=== PATIENT | male | born 1965 | race Caucasian/White ===

== ENCOUNTER → 2019-11-15 12:42 | Outpatient (BNVA) | payer MEDICARE, MEDICAID, SELFPAY | PROVIDERS: PCP Nurse Practitioner Family; Visit Provider Nurse Practitioner Family | DX: R07.89 Other chest pain (principal); E11.9 Type 2 diabetes mellitus without complications; R07.9 Chest pain, unspecified; I10 Essential (primary) hypertension; E78.2 Mixed hyperlipidemia; E11.65 Type 2 diabetes mellitus with hyperglycemia; K21.9 Gastro-esophageal reflux disease without esophagitis | CPT/HCPCS: 80053; 80061; 83036; 83735; 84443; 85025 ==

== ENCOUNTER → 2020-06-10 08:38 | Outpatient (BNVA) | payer MEDICARE, SELFPAY | PROVIDERS: PCP Nurse Practitioner Family; Visit Provider Nurse Practitioner Family | DX: M50.31 Other cervical disc degeneration, high cervical region (principal) | CPT/HCPCS: 72040 ==

== ENCOUNTER → 2020-06-20 09:25 | Outpatient (BNVA) | payer MEDICARE, SELFPAY | PROVIDERS: PCP Nurse Practitioner Family; Visit Provider Nurse Practitioner Family | DX: E11.65 Type 2 diabetes mellitus with hyperglycemia (principal); Z12.5 Encounter for screening for malignant neoplasm of prostate | CPT/HCPCS: 80053; 80061; 82043; 83036; 85025; G0103 ==

== ENCOUNTER → 2020-12-25 09:53 | Outpatient (BNVA) | payer MEDICARE, SELFPAY | PROVIDERS: PCP Nurse Practitioner Family; Visit Provider Nurse Practitioner Family | DX: E11.65 Type 2 diabetes mellitus with hyperglycemia (principal); I10 Essential (primary) hypertension; E78.2 Mixed hyperlipidemia; K21.9 Gastro-esophageal reflux disease without esophagitis; E11.9 Type 2 diabetes mellitus without complications | CPT/HCPCS: 80053; 80061; 83036; 84443; 85025 ==

== ENCOUNTER → 2021-03-09 11:12 | Outpatient (BNVA) | payer MEDICARE, SELFPAY | PROVIDERS: PCP Nurse Practitioner Family; Visit Provider Nurse Practitioner Family | DX: M54.9 Dorsalgia, unspecified (principal); E11.65 Type 2 diabetes mellitus with hyperglycemia; R10.9 Unspecified abdominal pain; R10.30 Lower abdominal pain, unspecified; E78.2 Mixed hyperlipidemia; I10 Essential (primary) hypertension; R35.0 Frequency of micturition | CPT/HCPCS: 80053; 80061; 81003; 83036; 84153; 85025 ==

== ENCOUNTER 2021-03-10 09:33 | Outpatient (CLI) | payer MEDICARE, SELFPAY ==
[2021-03-10] MEDS: iohexol 300 mg/mL 50 mL Btl PO (09:45)
--- NOTE | 2021-03-10 11:30 | CT_ITS ---
WS: [id number] CT ABDOMEN PELVIS TECHNIQUE: Contrast-enhanced CT of the abdomen and pelvis with coronal and sagittal reformatted image s. CLINICAL INFORMATION: R10.9 - Unspecified abdominal pain COMPARISON: None. DLP: 1110.[address] scans at [facility] use at least one of these dose optimization techniques: automat ed exposure control; mA and/or kV adjustment per patient size (includes targeted exams where dose is matched to clinical indication); or iterative reconstruction. FINDINGS:Sigmoid diverticulosis. Diffuse inflammatory stranding and edema with sigmoid colon thickeni ng consistent with acute diverticulitis. No evidence of drainable abscess or fluid collection. Recomm end follow-up to resolution. Diffuse fatty infiltration of the liver. Normal portal vein and splenic vein. Normal gallbladder. Nor mal spleen. Small esophageal hiatal hernia. Lung bases are well aerated. Calcified granuloma left low er lobe. Fatty atrophy of the pancreas. Adrenal glands are normal. Normal renal parenchymal enhanceme nt. No hydronephrosis. Small bilateral renal cysts. Normal caliber abdominal aorta. Mild aortic calci fication. No abdominal or pelvic lymphadenopathy. No inguinal lymphadenopathy. Prominent prostate measuring 5.3 cm. No evidence of small or large bowel obstruction. Normal lumbar spine. No evidence of prior sigmoid an astomosis. CT/CT abdomen pelvis w con* [id number] IMPRESSION: 1. Diffuse thickening with inflammatory stranding and edema involving the sigm oid colon consistent with acute diverticulitis. Recommend follow-up to resoluti on. 2. No evidence of drainable abscess or fluid collection. 3. Diffuse fatty infiltration of the liver. 4. Small bilateral renal cysts.. 5. Small esophageal hiatal hernia. 6. Prominent prostate measuring 5.3 cm. Recommend correlation PSA.
[2021-03-10] MEDS: iohexol 300 mg/mL 100 mL Btl PO (11:32)
== END 2021-03-10 09:34 | disposition home or self-care (01) ==
PROVIDERS: PCP Nurse Practitioner Family; Visit Provider Nurse Practitioner Family
DX: R10.9 Unspecified abdominal pain (principal); N40.0 Benign prostatic hyperplasia without lower urinary tract symptoms; K44.9 Diaphragmatic hernia without obstruction or gangrene; Q61.02 Congenital multiple renal cysts; K76.0 Fatty (change of) liver, not elsewhere classified
CPT/HCPCS: 74177; Q9967

== ENCOUNTER 2021-03-17 09:09 | Inpatient (IN) | payer MEDICARE, SELFPAY ==
[2021-03-17] VITALS (11 sets, daily range): BP systolic 107–128; BP diastolic 66–81; PULSE 53–64; RESP 16–18; TEMP 36.6–37.1; O2SAT 96–99; BMI 28.5
--- NOTE | 2021-03-17 09:23 | W.ED.ABDPA2 ---
Documented by User: GHANSHYAM Shaw 03/19/21 20:47 HPI - Abdominal Pain General: Chief Complaint: Abdominal Pain Stated Complaint: severe lower ABD cramping Time Seen by Provider: 03/17/21 09:18 History of Present Illness: HPI narrative: Patient is a 55-year-old male comes to the ED with abdominal pain. Patient says last week he was diagnosed with diverticulitis and put on Flagyl and Cipro. He has been taking the medications and also made some dietary changes and he still having a lot of abdominal pain. He reports still having diarrhea as well. He says his abdominal pain is located in the lower abdomen especially in the left lower quadrant. He rates the pain a 9 out of 10. Denies any fever, chills, nausea/vomiting, bladder symptoms. Associated Symptoms: Reports diarrhea; Denies chills, constipation, dysuria, fever(s), hematochezia, hematuria, nausea and vomiting Review of Systems Const: Denies: fever(s), chills or fatigue Eyes: Denies: change in vision or eye discomfort ENMT: Denies: throat pain, odynophagia, nasal discharge or nasal congestion Card: Denies: chest pain, palpitations, edema, swelling of feet/ankles, dyspnea on exertion or orthopnea Resp: Denies: dyspnea, productive cough or non-productive cough GI: Reports: abdominal pain and diarrhea; Denies: nausea, vomiting, constipation or hematochezia : Denies: flank pain, difficulty urinating, dysuria or hematuria Musc: Denies: neck pain, back pain or extremity swelling Skin/Breast: Denies: rash or new lesions Neuro: Denies: headache(s), numbness in extremities or weakness in extremities PFSH ED PFSH: Medical History Anxiety Decreased hearing of left ear Elevated hemoglobin Essential hypertension Kidney stone Knee pain, bilateral Left otitis externa Left otitis media with effusion Mild acid reflux Mixed hyperlipidemia Neck pain Neck pain on right side Otitis externa Right shoulder strain RLS (restless legs syndrome) Subcutaneous nodule of neck Thyroid nodule Type 2 diabetes mellitus Surgical History History of left knee surgery History of rotator cuff surgery Family History Other Cancer Diabetes Denies family history of Clotting disorder Social History Smoking and tobacco status: current every day smoker cigarettes Packs smoked per day: 0.5 Years cigarettes smoked: 40 Alcohol intake: current Alcohol intake frequency: few times a week Lives independently: Yes Household members: spouse Housing: House Marital status: Current occupational status: employed History of recent travel: No Current gender identity: Male Physical Exam Const: COMMON NORMALS: patient oriented x3 and alert GENERAL APPEARANCE: cooperative; not comfortable (pt appears uncomfortable due to abdominal pain) HENMT: COMMON NORMALS: normocephalic HEAD & SCALP: normocephalic MOUTH: Normal oral and palatal mucosa present THROAT: posterior oropharynx normal and uvula midline Eye: COMMON NORMALS: Equal, round and reactive pupils present PUPIL: Yes Equal, round and reactive pupils present Neck/C-Spine: COMMON NORMALS: supple GENERAL: Yes normal visual inspection Resp: COMMON NORMALS: normal respiratory effort, No retractions, No use of accessory muscles and clear to auscultation bilaterally AUSCULTATION: clear to auscultation bilaterally Cardio: COMMON NORMALS: regular rate, regular rhythm, S1 normal heart sound present, S2 normal heart sound present, No gallops present (Cardio), No clicks present (Cardio), No murmurs present (Cardio) and Peripheral pulses 2+ throughout RATE: regular rate RHYTHM: regular rhythm HEART SOUNDS: S1 normal heart sound present and S2 normal heart sound present PERIPHERAL PULSES: Peripheral pulses 2+ throughout GI: COMMON NORMALS: Soft to palpation and no masses AUSCULTATION: Yes Hyperactive bowel sounds present PALPATION: Yes Soft to palpation and Yes Tenderness to palpation present (GI) Details: LLQ (moderate tenderness to light palpation) : COMMON NORMALS: Yes no CVA tenderness BLADDER/KIDNEY EXAM: Yes no CVA tenderness Back/Pelvis: COMMON NORMALS: no CVA tenderness Extremity: COMMON NORMALS: normal to inspection Neuro: COMMON NORMALS: patient oriented x3 SENSORIUM/ORIENTATION: Yes alert GAIT: Yes Normal gait present Skin: GENERAL SKIN EXAM: dry skin Course ED course: I went and spoke with Dr. Bernardo after he got the lab results and CT findings. I Told Dr. Bernardo that patient failed outpatient treatment for diverticulitis and his CT findings are worse than they were a week ago and white blood cell count also increased. Dr. Bernardo then said patient will need to be admitted and I started him on IV Zosyn here in the ED. Dr. Mathew will be taking over care of patient talking with hospitalist and getting him admitted. Vital Signs: Vital signs: Vital Signs Temperature 98.0 F 03/19/21 12:39 Pulse Rate 56 L 03/19/21 12:39 Respiratory Rate 17 03/19/21 12:39 Blood Pressure 118/72 03/19/21 12:39 Pulse Oximetry 978 H 03/19/21 12:39 MDM - Abdominal Pain Lab Data: Attestation: I reviewed the patient's lab results. Labs: Lab Results 03/17/21 03/17/21 03/17/21 Range/Units 09:41 09:41 09:41 WBC 12.0 H (4.0-10.0) 10^3/ uL RBC 5.21 (4.1-5.3) 10^6/u L Hgb 16.7 H (11.7-16.6) g/dL Hct 48.4 (42.0-52.0) % MCV 92.9 (80-94) fL MCH 32.1 (28.0-34.0) pg MCHC 34.5 (30.0-36.0) g/dL RDW 12.0 L (12.1-15.1) % Plt Count 294 (130-400) 10^3/c mm MPV 9.8 (7.4-10.4) fL Neut % (Auto) 69.6 % Lymph % (Auto) 17.6 % [place] % (Auto) 7.3 % Eos % (Auto) 4.5 % Baso % (Auto) 0.8 % Neut # (Auto) 8.36 H (1.8-7.7) 10^3/u L Lymph # (Auto) 2.1 (0.8-4.8) 10^3/u L [place] # (Auto) 0.9 (0.2-0.9) 10^3/u L Eos # (Auto) 0.5 (0.0-0.8) 10^3/u L Baso # (Auto) 0.1 (0.0-0.1) 10^3/u L Nucleated RBC % (a uto) 0 % Nucleated RBCs # 0.0 /100WBC ESR (0-10) mm/hr Sodium 137 (136-145) mmol/L Potassium 4.1 (3.5-5.1) mmol/L Chloride 100 (98-107) mmol/L Carbon Dioxide 26 (22-29) mmol/L Anion Gap 15.1 (5-19) BUN 10 (6-20) mg/dL Creatinine 0.5 L (0.7-1.2) mg/dL GFR Calculation 171.4 H (90-130) mL/min Glucose 313 H (65-115) mg/dL Calculated Osmolal ity 295 (285-295) mOsm/k g Calcium 8.9 (8.5-10.5) mg/dL Iron 44 L (59-158) ug/dL TIBC 240 mcg/dl % Saturation 18.3 L (20-50) % Unsat Iron Binding 196 (112-347) ug/dL Total Bilirubin 1.0 (0.15-1.2) mg/dL AST 29 (0-40) U/L ALT 48 H (0-41) U/L Alkaline Phosphata se 101 (40-130) IU/L NT-Pro-B Natriuret Pep (0-125) pg/mL Total Protein 7.1 (6.6-8.7) g/dL Albumin 4.1 (3.5-5.2) g/dL Globulin 3.0 (1.3-4.6) g/dL Lipase 19 (13-60) U/L Carcinoembryonic A g (0.0-4.7) ng/mL Procalcitonin 0.03 (0-0.5) ng/mL TSH (0.27-4.20) uIU/ mL Urine Color (Yellow) Urine Appearance (CLEAR) Urine pH (5-7) Ur Specific Gravit y (1.005-1.030) Urine Protein (Negative) Urine Glucose (UA) (Normal) Urine Ketones (Negative) Urine Blood (Negative) Urine Nitrate (Negative) Urine Bilirubin (Negative) Urine Urobilinogen (Negative) mg/dL Ur Leukocyte Stephanie ase (Negative) Urine RBC (0-2) /hpf Urine WBC (0-5) /hpf Ur Squamous Epith Cells (0-5) /hpf Amorphous Sediment Urine Bacteria (NONE) /hpf 03/17/21 03/17/21 03/17/21 Range/Units 09:41 09:41 09:41 WBC (4.0-10.0) 10^3/ uL RBC (4.1-5.3) 10^6/u L Hgb (11.7-16.6) g/dL Hct (42.0-52.0) % MCV (80-94) fL MCH (28.0-34.0) pg MCHC (30.0-36.0) g/dL RDW (12.1-15.1) % Plt Count (130-400) 10^3/c mm MPV (7.4-10.4) fL Neut % (Auto) % Lymph % (Auto) % [place] % (Auto) % Eos % (Auto) % Baso % (Auto) % Neut # (Auto) (1.8-7.7) 10^3/u L Lymph # (Auto) (0.8-4.8) 10^3/u L [place] # (Auto) (0.2-0.9) 10^3/u L Eos # (Auto) (0.0-0.8) 10^3/u L Baso # (Auto) (0.0-0.1) 10^3/u L Nucleated RBC % (a uto) % Nucleated RBCs # /100WBC ESR 24 H (0-10) mm/hr Sodium (136-145) mmol/L Potassium (3.5-5.1) mmol/L Chloride (98-107) mmol/L Carbon Dioxide (22-29) mmol/L Anion Gap (5-19) BUN (6-20) mg/dL Creatinine (0.7-1.2) mg/dL GFR Calculation (90-130) mL/min Glucose (65-115) mg/dL Calculated Osmolal ity (285-295) mOsm/k g Calcium (8.5-10.5) mg/dL Iron (59-158) ug/dL TIBC mcg/dl % Saturation (20-50) % Unsat Iron Binding (112-347) ug/dL Total Bilirubin (0.15-1.2) mg/dL AST (0-40) U/L ALT (0-41) U/L Alkaline Phosphata se (40-130) IU/L NT-Pro-B Natriuret Pep (0-125) pg/mL Total Protein (6.6-8.7) g/dL Albumin (3.5-5.2) g/dL Globulin (1.3-4.6) g/dL Lipase (13-60) U/L Carcinoembryonic A g 3.0 (0.0-4.7) ng/mL Procalcitonin (0-0.5) ng/mL TSH 1.29 (0.27-4.20) uIU/ mL Urine Color (Yellow) Urine Appearance (CLEAR) Urine pH (5-7) Ur Specific Gravit y (1.005-1.030) Urine Protein (Negative) Urine Glucose (UA) (Normal) Urine Ketones (Negative) Urine Blood (Negative) Urine Nitrate (Negative) Urine Bilirubin (Negative) Urine Urobilinogen (Negative) mg/dL Ur Leukocyte Stephanie ase (Negative) Urine RBC (0-2) /hpf Urine WBC (0-5) /hpf Ur Squamous Epith Cells (0-5) /hpf Amorphous Sediment Urine Bacteria (NONE) /hpf 03/17/21 03/17/21 Range/Units 09:41 09:56 WBC (4.0-10.0) 10^3/ uL RBC (4.1-5.3) 10^6/u L Hgb (11.7-16.6) g/dL Hct (42.0-52.0) % MCV (80-94) fL MCH (28.0-34.0) pg MCHC (30.0-36.0) g/dL RDW (12.1-15.1) % Plt Count (130-400) 10^3/c mm MPV (7.4-10.4) fL Neut % (Auto) % Lymph % (Auto) % [place] % (Auto) % Eos % (Auto) % Baso % (Auto) % Neut # (Auto) (1.8-7.7) 10^3/u L Lymph # (Auto) (0.8-4.8) 10^3/u L [place] # (Auto) (0.2-0.9) 10^3/u L Eos # (Auto) (0.0-0.8) 10^3/u L Baso # (Auto) (0.0-0.1) 10^3/u L Nucleated RBC % (a uto) % Nucleated RBCs # /100WBC ESR (0-10) mm/hr Sodium (136-145) mmol/L Potassium (3.5-5.1) mmol/L Chloride (98-107) mmol/L Carbon Dioxide (22-29) mmol/L Anion Gap (5-19) BUN (6-20) mg/dL Creatinine (0.7-1.2) mg/dL GFR Calculation (90-130) mL/min Glucose (65-115) mg/dL Calculated Osmolal ity (285-295) mOsm/k g Calcium (8.5-10.5) mg/dL Iron (59-158) ug/dL TIBC mcg/dl % Saturation (20-50) % Unsat Iron Binding (112-347) ug/dL Total Bilirubin (0.15-1.2) mg/dL AST (0-40) U/L ALT (0-41) U/L Alkaline Phosphata se (40-130) IU/L NT-Pro-B Natriuret Pep 44 (0-125) pg/mL Total Protein (6.6-8.7) g/dL Albumin (3.5-5.2) g/dL Globulin (1.3-4.6) g/dL Lipase (13-60) U/L Carcinoembryonic A g (0.0-4.7) ng/mL Procalcitonin (0-0.5) ng/mL TSH (0.27-4.20) uIU/ mL Urine Color Yellow (Yellow) Urine Appearance Clear (CLEAR) Urine pH 5 (5-7) Ur Specific Gravit y 1.020 (1.005-1.030) Urine Protein Neg (Negative) Urine Glucose (UA) 4+ H (Normal) Urine Ketones Negative (Negative) Urine Blood Neg (Negative) Urine Nitrate Negative (Negative) Urine Bilirubin Neg (Negative) Urine Urobilinogen Norm (Negative) mg/dL Ur Leukocyte Stephanie ase Negative (Negative) Urine RBC None (0-2) /hpf Urine WBC None (0-5) /hpf Ur Squamous Epith Cells None (0-5) /hpf Amorphous Sediment Not Reportable Urine Bacteria None (NONE) /hpf Imaging Data ^: CT Abd/Pel: Attestation: I personally reviewed and interpreted this imaging study as follows: Radiologist's impression: [address] [address] [address] Scan Report Signed Patient: Karan Castro Unit #: [id number] : [id number] Age/Sex: 55 / M ADM Date: 03/17/21 Loc: ER Room/Bed: Attending Dr: Ordering Provider/Ordering MD: Kev Mcclellan Date of Service: 03/17/21 Procedure(s): CT abdomen pelvis w con* [id number] Accession Number(s): [id number] Report Number: [id number] WS: [id number] CT ABDOMEN PELVIS TECHNIQUE: Contrast-enhanced CT of the abdomen and pelvis with coronal and sagittal reformatted images. CLINICAL INFORMATION: abdominal pain and diarrhea COMPARISON: March 10, 2021 DLP: 1584.[address] scans at [facility] use at least one of these dose optimization techniques: automated exposure control; mA and/or kV adjustment per patient size (includes targeted exams where dose is matched to clinical indication); or iterative reconstruction. FINDINGS: Diffuse thickening involving the sigmoid colon with surrounding inflammatory changes and induration most consistent with acute diverticulitis. This is slightly progressed compared to the prior examination. No evidence of drainable abscess or fluid collection. Recommend follow-up to resolution to exclude underlying neoplasm. Linear increased attenuation in the sigmoid colon presumably due to prior anastomosis. Diffuse fatty infiltration of the liver. Normal gallbladder. Normal spleen. Normal GE junction. Fatty atrophy of the pancreas. Adrenal glands are normal. Normal renal parenchymal enhancement. No hydronephrosis. Enlarged calcified prostate. No other significant changes from previous. CT/CT abdomen pelvis w con* [id number] IMPRESSION: 1. Diffuse wall thickening involving the sigmoid colon with surrounding induration and inflammatory changes consistent with acute diverticulitis. Associated luminal narrowing. This appears slightly progressed compared to the previous examination. 2. Recommend follow-up to resolution to exclude underlying neoplasm. 3. Suspected sigmoid colon anastomosis with suture line. If no history of colon surgery, consider impacted needlelike foreign body in this area contributing to diverticulitis. 4. No other significant changes from previous. 5. No drainable abscess or fluid collection. Notified GHANSHYAM Shaw at 03/17/2021 10:26 AM. Dictated By: Charli Stafford MD Signed By: Charli Stafford MD Signed Date/Time: 03/17/21 1031 DD/ 1010 Discharge Plan Discharge Admit Provider: Iggy Glass Condition: Stable Discharge Orders: Discharge Order (Routine); Ordered 03/19/21 Ordered By: Iggy Glass Discharge Diet: Diabetic and GI Soft Discharge Activity: Resume usual activity Sign Out Sign Out Data: Patient Sign Out occurred on 03/17/21 at 11:40. Patient's care was discussed, and care was transferred from to Reid Bernardo DO. Coding Level of Care Code ED Scrum Master for Chg Fwd Exam Comprehensive Documented by User: Reid Bernardo DO 03/19/21 06:19 HPI - Abdominal Pain General: Chief Complaint: Abdominal Pain Stated Complaint: severe lower ABD cramping Time Seen by Provider: 03/17/21 09:18 History of Present Illness: HPI narrative: 55-year-old male initially seen by the PA. Is recently diagnosed with diverticulitis was on Cipro and Flagyl p.o. and has not had any improvement still having significant pain slightly worsened with diarrhea has not had any bloody stools. MD elicited complaint: abdominal pain Pertinent past history: diverticulitis Onset (ago): day(s) Location: LLQ Severity: moderate Quality: cramping Radiation: none Migration to: no migration Exacerbating factors: eating and movement Relieving factors: rest Associated Symptoms: Reports anorexia, belching, change in bowel habits, change in stool character, GI cramping, diarrhea, nausea and poor appetite; Denies bloating, chills, coffee ground emesis, constipation, dyspepsia, dysuria, excessive flatus, fever(s), heartburn, hematochezia, hematuria, hematemesis, fecal incontinence, loose stools, melena, syncope and vomiting Review of Systems Const: Denies: fever(s) or chills ENMT: Denies: throat pain, ear or mastoid pain, nasal discharge or nasal congestion Card: Denies: syncope Resp: Denies: dyspnea, productive cough or non-productive cough GI: Reports: nausea, diarrhea, GI cramping, belching, change in bowel habits and change in stool character; Denies: vomiting, hematemesis, coffee ground emesis, heartburn, constipation, bloating, excessive flatus, fecal incontinence, hematochezia or melena : Denies: dysuria or hematuria Skin/Breast: Denies: rash or pruritus PFSH ED PFSH: Medical History Anxiety Decreased hearing of left ear Elevated hemoglobin Essential hypertension Kidney stone Knee pain, bilateral Left otitis externa Left otitis media with effusion Mild acid reflux Mixed hyperlipidemia Neck pain Neck pain on right side Otitis externa Right shoulder strain RLS (restless legs syndrome) Subcutaneous nodule of neck Thyroid nodule Type 2 diabetes mellitus Surgical History History of left knee surgery History of rotator cuff surgery Family History Other Cancer Diabetes Denies family history of Clotting disorder Social History Smoking and tobacco status: current every day smoker cigarettes Packs smoked per day: 0.5 Years cigarettes smoked: 40 Alcohol intake: current Alcohol intake frequency: few times a week Lives independently: Yes Household members: spouse Housing: House Marital status: Current occupational status: employed History of recent travel: No Current gender identity: Male Physical Exam Const: COMMON NORMALS: no acute distress GENERAL APPEARANCE: cooperative and comfortable ORIENTATION/CONSCIOUSNESS: Yes awake, Yes oriented to person, Yes oriented to place and Yes oriented to time HENMT: COMMON NORMALS: normocephalic, atraumatic, hearing grossly normal bilaterally and external ears normal HEAD & SCALP: normocephalic and atraumatic EXTERNAL EAR: Yes external ears normal Neck/C-Spine: COMMON NORMALS: no JVD Resp: COMMON NORMALS: normal respiratory effort, No retractions, No use of accessory muscles and clear to auscultation bilaterally AUSCULTATION: clear to auscultation bilaterally Cardio: COMMON NORMALS: no JVD, regular rate, regular rhythm and No murmurs present (Cardio) RATE: regular rate RHYTHM: regular rhythm GI: COMMON NORMALS: No hepatosplenomegaly present AUSCULTATION: Yes Hypoactive bowel sounds present PALPATION: Yes Tenderness to palpation present (GI) Details: LLQ, No Guarding due to palpation present (GI) and Yes No hepatosplenomegaly present Extremity: COMMON NORMALS: normal to inspection, capillary refill normal, no clubbing, cyanosis or edema, no calf tenderness and no pedal edema Neuro: SENSORIUM/ORIENTATION: Yes oriented to person, Yes oriented to place and Yes oriented to time Skin: COMMON NORMALS: no rashes or lesions noted GENERAL SKIN EXAM: no rashes or lesions noted Course Vital Signs: Vital signs: Vital Signs Temperature 98.0 F 03/19/21 12:39 Pulse Rate 56 L 03/19/21 12:39 Respiratory Rate 17 03/19/21 12:39 Blood Pressure 118/72 03/19/21 12:39 Pulse Oximetry 978 H 03/19/21 12:39 MDM - Abdominal Pain MDM Narrative: Medical decision making narrative: Reviewed noted seen and examined patient. Agree with history physical and plan discussed with hospitalist will admit the patient to start on Zosyn. Lab Data: Labs: Lab Results 03/17/21 03/17/21 03/17/21 Range/Units 09:41 09:41 09:41 WBC 12.0 H (4.0-10.0) 10^3/ uL RBC 5.21 (4.1-5.3) 10^6/u L Hgb 16.7 H (11.7-16.6) g/dL Hct 48.4 (42.0-52.0) % MCV 92.9 (80-94) fL MCH 32.1 (28.0-34.0) pg MCHC 34.5 (30.0-36.0) g/dL RDW 12.0 L (12.1-15.1) % Plt Count 294 (130-400) 10^3/c mm MPV 9.8 (7.4-10.4) fL Neut % (Auto) 69.6 % Lymph % (Auto) 17.6 % [place] % (Auto) 7.3 % Eos % (Auto) 4.5 % Baso % (Auto) 0.8 % Neut # (Auto) 8.36 H (1.8-7.7) 10^3/u L Lymph # (Auto) 2.1 (0.8-4.8) 10^3/u L [place] # (Auto) 0.9 (0.2-0.9) 10^3/u L Eos # (Auto) 0.5 (0.0-0.8) 10^3/u L Baso # (Auto) 0.1 (0.0-0.1) 10^3/u L Nucleated RBC % (a uto) 0 % Nucleated RBCs # 0.0 /100WBC ESR (0-10) mm/hr Sodium 137 (136-145) mmol/L Potassium 4.1 (3.5-5.1) mmol/L Chloride 100 (98-107) mmol/L Carbon Dioxide 26 (22-29) mmol/L Anion Gap 15.1 (5-19) BUN 10 (6-20) mg/dL Creatinine 0.5 L (0.7-1.2) mg/dL GFR Calculation 171.4 H (90-130) mL/min Glucose 313 H (65-115) mg/dL Calculated Osmolal ity 295 (285-295) mOsm/k g Calcium 8.9 (8.5-10.5) mg/dL Iron 44 L (59-158) ug/dL TIBC 240 mcg/dl % Saturation 18.3 L (20-50) % Unsat Iron Binding 196 (112-347) ug/dL Total Bilirubin 1.0 (0.15-1.2) mg/dL AST 29 (0-40) U/L ALT 48 H (0-41) U/L Alkaline Phosphata se 101 (40-130) IU/L NT-Pro-B Natriuret Pep (0-125) pg/mL Total Protein 7.1 (6.6-8.7) g/dL Albumin 4.1 (3.5-5.2) g/dL Globulin 3.0 (1.3-4.6) g/dL Lipase 19 (13-60) U/L Carcinoembryonic A g (0.0-4.7) ng/mL Procalcitonin 0.03 (0-0.5) ng/mL TSH (0.27-4.20) uIU/ mL Urine Color (Yellow) Urine Appearance (CLEAR) Urine pH (5-7) Ur Specific Gravit y (1.005-1.030) Urine Protein (Negative) Urine Glucose (UA) (Normal) Urine Ketones (Negative) Urine Blood (Negative) Urine Nitrate (Negative) Urine Bilirubin (Negative) Urine Urobilinogen (Negative) mg/dL Ur Leukocyte Stephanie ase (Negative) Urine RBC (0-2) /hpf Urine WBC (0-5) /hpf Ur Squamous Epith Cells (0-5) /hpf Amorphous Sediment Urine Bacteria (NONE) /hpf 03/17/21 03/17/21 03/17/21 Range/Units 09:41 09:41 09:41 WBC (4.0-10.0) 10^3/ uL RBC (4.1-5.3) 10^6/u L Hgb (11.7-16.6) g/dL Hct (42.0-52.0) % MCV (80-94) fL MCH (28.0-34.0) pg MCHC (30.0-36.0) g/dL RDW (12.1-15.1) % Plt Count (130-400) 10^3/c mm MPV (7.4-10.4) fL Neut % (Auto) % Lymph % (Auto) % [place] % (Auto) % Eos % (Auto) % Baso % (Auto) % Neut # (Auto) (1.8-7.7) 10^3/u L Lymph # (Auto) (0.8-4.8) 10^3/u L [place] # (Auto) (0.2-0.9) 10^3/u L Eos # (Auto) (0.0-0.8) 10^3/u L Baso # (Auto) (0.0-0.1) 10^3/u L Nucleated RBC % (a uto) % Nucleated RBCs # /100WBC ESR 24 H (0-10) mm/hr Sodium (136-145) mmol/L Potassium (3.5-5.1) mmol/L Chloride (98-107) mmol/L Carbon Dioxide (22-29) mmol/L Anion Gap (5-19) BUN (6-20) mg/dL Creatinine (0.7-1.2) mg/dL GFR Calculation (90-130) mL/min Glucose (65-115) mg/dL Calculated Osmolal ity (285-295) mOsm/k g Calcium (8.5-10.5) mg/dL Iron (59-158) ug/dL TIBC mcg/dl % Saturation (20-50) % Unsat Iron Binding (112-347) ug/dL Total Bilirubin (0.15-1.2) mg/dL AST (0-40) U/L ALT (0-41) U/L Alkaline Phosphata se (40-130) IU/L NT-Pro-B Natriuret Pep (0-125) pg/mL Total Protein (6.6-8.7) g/dL Albumin (3.5-5.2) g/dL Globulin (1.3-4.6) g/dL Lipase (13-60) U/L Carcinoembryonic A g 3.0 (0.0-4.7) ng/mL Procalcitonin (0-0.5) ng/mL TSH 1.29 (0.27-4.20) uIU/ mL Urine Color (Yellow) Urine Appearance (CLEAR) Urine pH (5-7) Ur Specific Gravit y (1.005-1.030) Urine Protein (Negative) Urine Glucose (UA) (Normal) Urine Ketones (Negative) Urine Blood (Negative) Urine Nitrate (Negative) Urine Bilirubin (Negative) Urine Urobilinogen (Negative) mg/dL Ur Leukocyte Stephanie ase (Negative) Urine RBC (0-2) /hpf Urine WBC (0-5) /hpf Ur Squamous Epith Cells (0-5) /hpf Amorphous Sediment Urine Bacteria (NONE) /hpf 03/17/21 03/17/21 Range/Units 09:41 09:56 WBC (4.0-10.0) 10^3/ uL RBC (4.1-5.3) 10^6/u L Hgb (11.7-16.6) g/dL Hct (42.0-52.0) % MCV (80-94) fL MCH (28.0-34.0) pg MCHC (30.0-36.0) g/dL RDW (12.1-15.1) % Plt Count (130-400) 10^3/c mm MPV (7.4-10.4) fL Neut % (Auto) % Lymph % (Auto) % [place] % (Auto) % Eos % (Auto) % Baso % (Auto) % Neut # (Auto) (1.8-7.7) 10^3/u L Lymph # (Auto) (0.8-4.8) 10^3/u L [place] # (Auto) (0.2-0.9) 10^3/u L Eos # (Auto) (0.0-0.8) 10^3/u L Baso # (Auto) (0.0-0.1) 10^3/u L Nucleated RBC % (a uto) % Nucleated RBCs # /100WBC ESR (0-10) mm/hr Sodium (136-145) mmol/L Potassium (3.5-5.1) mmol/L Chloride (98-107) mmol/L Carbon Dioxide (22-29) mmol/L Anion Gap (5-19) BUN (6-20) mg/dL Creatinine (0.7-1.2) mg/dL GFR Calculation (90-130) mL/min Glucose (65-115) mg/dL Calculated Osmolal ity (285-295) mOsm/k g Calcium (8.5-10.5) mg/dL Iron (59-158) ug/dL TIBC mcg/dl % Saturation (20-50) % Unsat Iron Binding (112-347) ug/dL Total Bilirubin (0.15-1.2) mg/dL AST (0-40) U/L ALT (0-41) U/L Alkaline Phosphata se (40-130) IU/L NT-Pro-B Natriuret Pep 44 (0-125) pg/mL Total Protein (6.6-8.7) g/dL Albumin (3.5-5.2) g/dL Globulin (1.3-4.6) g/dL Lipase (13-60) U/L Carcinoembryonic A g (0.0-4.7) ng/mL Procalcitonin (0-0.5) ng/mL TSH (0.27-4.20) uIU/ mL Urine Color Yellow (Yellow) Urine Appearance Clear (CLEAR) Urine pH 5 (5-7) Ur Specific Gravit y 1.020 (1.005-1.030) Urine Protein Neg (Negative) Urine Glucose (UA) 4+ H (Normal) Urine Ketones Negative (Negative) Urine Blood Neg (Negative) Urine Nitrate Negative (Negative) Urine Bilirubin Neg (Negative) Urine Urobilinogen Norm (Negative) mg/dL Ur Leukocyte Stephanie ase Negative (Negative) Urine RBC None (0-2) /hpf Urine WBC None (0-5) /hpf Ur Squamous Epith Cells None (0-5) /hpf Amorphous Sediment Not Reportable Urine Bacteria None (NONE) /hpf Discharge Plan Discharge Admit Provider: Iggy Glass Condition: Stable Discharge Orders: Discharge Order (Routine); Ordered 03/19/21 Ordered By: Iggy Glass Discharge Diet: Diabetic and GI Soft Discharge Activity: Resume usual activity Sign Out Sign Out Data: Patient Sign Out occurred on 03/17/21 at 11:40. Patient's care was discussed, and care was transferred from to Reid Bernardo DO. Coding Level of Care Code ED Scrum Master for Chg Fwd Exam Comprehensive
--- NOTE | 2021-03-17 09:30 | CT_ITS ---
WS: [id number] CT ABDOMEN PELVIS TECHNIQUE: Contrast-enhanced CT of the abdomen and pelvis with coronal and sagittal reformatted image s. CLINICAL INFORMATION: abdominal pain and diarrhea COMPARISON: March 10, 2021 DLP: 1584.[address] scans at [facility] use at least one of these dose optimization techniques: automat ed exposure control; mA and/or kV adjustment per patient size (includes targeted exams where dose is matched to clinical indication); or iterative reconstruction. FINDINGS: Diffuse thickening involving the sigmoid colon with surrounding inflammatory changes and induration m ost consistent with acute diverticulitis. This is slightly progressed compared to the prior examinati on. No evidence of drainable abscess or fluid collection. Recommend follow-up to resolution to exclud e underlying neoplasm. Linear increased attenuation in the sigmoid colon presumably due to prior anas tomosis. Diffuse fatty infiltration of the liver. Normal gallbladder. Normal spleen. Normal GE junction. Fatty atrophy of the pancreas. Adrenal glands are normal. Normal renal parenchymal enhancement. No hydrone phrosis. Enlarged calcified prostate. No other significant changes from previous. CT/CT abdomen pelvis w con* [id number] IMPRESSION: 1. Diffuse wall thickening involving the sigmoid colon with surrounding indura tion and inflammatory changes consistent with acute diverticulitis. Associated luminal narrowing. This appears slightly progressed compared to the previous ex amination. 2. Recommend follow-up to resolution to exclude underlying neoplasm. 3. Suspected sigmoid colon anastomosis with suture line. If no history of colo n surgery, consider impacted needlelike foreign body in this area contributing to diverticulitis. 4. No other significant changes from previous. 5. No drainable abscess or fluid collection. Notified GHANSHYAM Shaw at 03/17/2021 10:26 AM.
[2021-03-17] MEDS: morphine 4 mg/mL SDV 1 mL IVP (09:48)
[2021-03-17] MEDS: sodium chloride 0.9% 1,000 ML 999 ML IV (09:48)
[2021-03-17 09:49] LABS: Basophils # 0.1 10^3/uL (0.0-0.1); Basophils % 0.8 %; Eosinophils # 0.5 10^3/uL (0.0-0.8); Eosinophils % 4.5 %; Hematocrit 48.4 % (42.0-52.0); Hemoglobin 16.7 g/dL (11.7-16.6); Lymphocytes # 2.1 10^3/uL (0.8-4.8); Lymphocytes % 17.6 %; Mean Corpuscular HGB Conc 34.5 g/dL (30.0-36.0); Mean Corpuscular Hemoglobin 32.1 pg (28.0-34.0); Mean Corpuscular Volume 92.9 fL (80-94); Mean Platelet Volume 9.8 fL (7.4-10.4); Monocytes # 0.9 10^3/uL (0.2-0.9); Monocytes % 7.3 %; Neutrophils # 8.36 10^3/uL (1.8-7.7); Neutrophils % 69.6 %; Nucleated Red Blood Cells % 0 %; Platelet Count 294 10^3/cmm (130-400); Red Blood Count 5.21 10^6/uL (4.1-5.3)
[2021-03-17] MEDS: ondansetron 2 mg/ML SDV 2 mL 4 MG IVP (09:49)
[2021-03-17] MEDS: iohexol 300 mg/mL 100 mL Btl IV (10:06)
[2021-03-17 10:12] LABS: Bilirubin Urine Neg (Negative); Blood Urine Neg (Negative); Glucose Urine UA 4+ (Normal); Ketones Urine Negative (Negative); Leukocyte Esterase Urine Negative (Negative); Nitrate Urine Negative (Negative); Protein Urine Neg (Negative); Urine Appearance Clear (CLEAR); Urine Color Yellow (Yellow); Urobilinogen Urine Norm (Negative); pH Urine 5 (5-7)
[2021-03-17 10:12] LABS: Alanine Aminotransferase 48 U/L (0-41); Albumin Level 4.1 g/dL (3.5-5.2); Alkaline Phosphatase 101 IU/L (40-130); Aspartate Amino Transferase 29 U/L (0-40); Blood Urea Nitrogen 10 mg/dL (6-20); Calcium 8.9 mg/dL (8.5-10.5); Carbon Dioxide 26 mmol/L (22-29); Chloride 100 mmol/L (98-107); Glomerular Filtration Rate 171.4 mL/min (90-130); Glucose 313 mg/dL (65-115); Lipase 19 U/L (13-60); Osmolality Calculated 295 mOsm/kg (285-295); Sodium 137 mmol/L (136-145); Total Protein 7.1 g/dL (6.6-8.7)
[2021-03-17 10:14] LABS: Add Urine Culture? No
[2021-03-17 10:25] LABS: Anion Gap 15.1 (5-19); Potassium 4.1 mmol/L (3.5-5.1)
--- NOTE | 2021-03-17 13:18 | PM.HP ---
Providers/Chief Complaint Primary Care Provider: Nisreen Pineda MD Chief Complaint: severe lower ABD cramping History of Present Illness Karan Castro is a 55 year old male with past medical history of hypertension, restless leg syndrome, type 2 diabetes mellitus with A1c of 10.8 presented to the ER today because of lower abdominal cramps, diarrhea. Patient states he has been having symptoms on and off for last 1 month. He states first he thought it was because of the new Jardiance which was started for him around 6 weeks ago and since stopping the medication his symptoms have slightly reduced but are still persisting. He complains of crampy lower abdominal pain which gets relieved after bowel movements, and passing flatus. He is also complaining of intermittent almost daily watery bowel movements. Bowel movements are no fissures not associated with melena, foul smell. He states he has a bowel movement even when he is going to pass urine. Complaining of on and off occasional dysuria with burning sensation and some burning sensation while having bowel movements. Denies any vomiting but has occasional nausea with decreased appetite. As per the family member at bedside patient has lost around 16 pounds in 2 weeks. Patient has never had colonoscopy or EGD in the past. Has significant family history with cancers in both maternal and paternal side. Denies any recent travels, states his son is having also similar symptoms but that they are associated with working in heat. Family consumes well water and has not checked well water in a long time. Denies any sick contacts, subjective fever fevers, headache, weakness in any of her arms or legs. Patient had presented to his PCP a week ago with similar complaints and at that time was started on Cipro and Flagyl without any resolution of symptoms. Blood work in the ER showed a white count 12,000, hemoglobin of 16.7, sodium of 137, chloride of 100, BUN of 10, creatinine of 0.5, AST/ALT of 29/48, urinalysis negative for any signs of infection with negative nitrite and leukoesterase. CT abdomen results as below. Review of Systems General: Reports: 10 or more systems reviewed and unremarkable except in HPI and below Const: Denies: fever(s), chills, body aches, change in appetite, change in weight, malaise, night sweats, diaphoresis, change in sleep pattern, daytime sleepiness or snoring Eyes: Denies: change in vision, blurry vision, photophobia, eye discomfort or eye discharge ENMT: Denies: throat pain, enlarged tonsils, hoarseness, mouth pain, oral sores, dry mouth, tinnitus, nasal congestion or post nasal drip Card: Denies: chest pain, palpitations, irregular heart rhythm, edema, swelling of feet/ankles, lightheadedness, syncope, pre-syncope, dyspnea on exertion, orthopnea, leg pain with exertion or acrocyanosis Resp: Denies: dyspnea, productive cough, non-productive cough, wheezing, stridor, pain on inspiration, change in phlegm color, hemoptysis or chest congestion GI: Reports: abdominal pain, nausea, diarrhea, GI cramping and change in bowel habits; Denies: vomiting, hematemesis, coffee ground emesis, dysphagia, heartburn, constipation, bloating, pain on defecation, hematochezia or melena : Denies: flank pain, difficulty urinating, dysuria, urinary frequency, urinary urgency, urinary hesitancy, urinary dribbling, difficulty starting urination, change in urine stream, nocturia or hematuria Musc: Denies: neck pain, back pain, extremity pain, joint pain, joint swelling, joint redness, joint stiffness or limited range of motion Neuro: Denies: headache(s), numbness in extremities, weakness in extremities, sensory changes, lack of coordination, difficulty walking, frequent falls, dizziness, vertigo, confusion, Slurred speech present, difficulty communicating thoughts or seizure-like activity Psych: Denies: anxiety, depression, mood swings, panic attacks, hopelessness or irritability Endo: Denies: polyuria, polydipsia, tired all the time, cold intolerance, excessive sweating, flushing or heat intolerance Anuel/Lymph: Denies: easy bruising or easy bleeding All/Imm: Denies: tongue swelling, facial swelling or acute wheezing Medications/Allergies Home Medications Medication Instructions Recorded Confirmed Last Taken Type aspirin 81 mg tablet,delayed 81 mg PO DAILY 10/29/19 03/17/21 03/17/21 History release omega-3 fatty acids 1,000 mg 1,000 mg PO DAILY 10/29/19 03/17/21 03/17/21 History capsule albuterol sulfate 90 mcg/actuation 2 puff INHALATION QID PRN #8 gm 12/25/20 03/17/21 Unknown Rx aerosol inhaler insulin detemir U-100 100 unit/mL 20 unit SUBCUT DAILY #15 ml 12/25/20 03/17/21 03/16/21 Rx (3 mL) subcutaneous pen celecoxib 200 mg capsule 200 mg PO BID #60 cap 01/07/21 03/17/21 03/16/21 Rx cyclobenzaprine 10 mg tablet 10 mg PO TID PRN #30 tab 01/07/21 03/17/21 Unknown Rx ciprofloxacin HCl 500 mg tablet 500 mg PO BID #20 tab 03/09/21 03/17/21 03/17/21 Rx metronidazole 500 mg tablet 500 mg PO TID #30 tab 03/09/21 03/17/21 03/16/21 Rx tramadol 50 mg tablet 50 mg PO TID PRN 10 Days #30 tab 03/09/21 03/17/21 Unknown Rx Lipitor 80 mg PO DAILY 03/17/21 03/17/21 03/17/21 History benazepril 10 mg PO DAILY 03/17/21 03/17/21 03/17/21 History famotidine 20 mg PO DAILY 03/17/21 03/17/21 03/17/21 History metformin 1,000 mg PO BID 03/17/21 03/17/21 03/17/21 History Allergies Allergy/AdvReac Type Severity Reaction Status Date / Time No Known Allergies Allergy Verified 03/09/21 10:31 PFSH Acute PFSH: Medical History (Updated 03/17/21 @ 15:21 by Iggy Glass MD) Anxiety Decreased hearing of left ear Elevated hemoglobin Essential hypertension Kidney stone Knee pain, bilateral Left otitis externa Left otitis media with effusion Mild acid reflux Mixed hyperlipidemia Neck pain Neck pain on right side Otitis externa Right shoulder strain RLS (restless legs syndrome) Subcutaneous nodule of neck Thyroid nodule Type 2 diabetes mellitus Surgical History History of left knee surgery History of rotator cuff surgery Family History (Updated 03/17/21 @ 15:11 by Iggy Glass MD) Other Cancer Diabetes Denies family history of Clotting disorder Social History Smoking and tobacco status: current every day smoker cigarettes Packs smoked per day: 0.5 Years cigarettes smoked: 40 Alcohol intake: current Alcohol intake frequency: few times a week Lives independently: Yes Household members: spouse Housing: House Marital status: Current occupational status: employed History of recent travel: No Current gender identity: Male Vitals/I&O/Wt Last Vital Signs Temp 98.5 F 03/17/21 10:19 Pulse 57 L 03/17/21 11:20 Resp 16 03/17/21 10:19 BP 112/66 03/17/21 11:20 Pulse Ox 96 03/17/21 11:20 Weight last 48 hrs Weight 85.275 kg Physical Exam Narrative: EXAM NARRATIVE: General: No acute distress, AO x3 HEENT: PERRLA, pupils bilaterally equal and reactive Chest: Normal vesicular breath sounds, no added sounds, equal good air entry bilaterally CVS: S1-S2 regular, no murmurs, no tachycardia, no gallops, no rubs Abdomen: Soft, mild tenderness in periumbilical and lower abdomen , no organomegaly, bowel sounds present, no guarding no rigidity Neuro: No focal deficits, no facial deformity, AO x3, power 5/5 in all limbs Data : 03/17/21 09:41 03/17/21 09:41 Other Labs: Laboratory Results WBC 12.0 10^3/uL (4.0-10.0) H 03/17/21 09:41 RBC 5.21 10^6/uL (4.1-5.3) 03/17/21 09:41 Hgb 16.7 g/dL (11.7-16.6) H 03/17/21 09:41 Hct 48.4 % (42.0-52.0) 03/17/21 09:41 MCV 92.9 fL (80-94) 03/17/21 09:41 MCH 32.1 pg (28.0-34.0) 03/17/21 09:41 MCHC 34.5 g/dL (30.0-36.0) 03/17/21 09:41 RDW 12.0 % (12.1-15.1) L 03/17/21 09:41 Plt Count 294 10^3/cmm (130-400) 03/17/21 09:41 MPV 9.8 fL (7.4-10.4) 03/17/21 09:41 Neut % (Auto) 69.6 % 03/17/21 09:41 Lymph % (Auto) 17.6 % 03/17/21 09:41 Desha % (Auto) 7.3 % 03/17/21 09:41 Eos % (Auto) 4.5 % 03/17/21 09:41 Baso % (Auto) 0.8 % 03/17/21 09:41 Neut # (Auto) 8.36 10^3/uL (1.8-7.7) H 03/17/21 09:41 Lymph # (Auto) 2.1 10^3/uL (0.8-4.8) 03/17/21 09:41 Desha # (Auto) 0.9 10^3/uL (0.2-0.9) 03/17/21 09:41 Eos # (Auto) 0.5 10^3/uL (0.0-0.8) 03/17/21 09:41 Baso # (Auto) 0.1 10^3/uL (0.0-0.1) 03/17/21 09:41 Nucleated RBC % (auto) 0 % 03/17/21 09:41 Nucleated RBCs # 0.0 /100WBC 03/17/21 09:41 Sodium 137 mmol/L (136-145) 03/17/21 09:41 Potassium 4.1 mmol/L (3.5-5.1) 03/17/21 09:41 Chloride 100 mmol/L (98-107) 03/17/21 09:41 Carbon Dioxide 26 mmol/L (22-29) 03/17/21 09:41 Anion Gap 15.1 (5-19) 03/17/21 09:41 BUN 10 mg/dL (6-20) 03/17/21 09:41 Creatinine 0.5 mg/dL (0.7-1.2) L 03/17/21 09:41 GFR Calculation 171.4 mL/min (90-130) H 03/17/21 09:41 Glucose 313 mg/dL (65-115) H 03/17/21 09:41 Calculated Osmolality 295 mOsm/kg (285-295) 03/17/21 09:41 Calcium 8.9 mg/dL (8.5-10.5) 03/17/21 09:41 Total Bilirubin 1.0 mg/dL (0.15-1.2) 03/17/21 09:41 AST 29 U/L (0-40) 03/17/21 09:41 ALT 48 U/L (0-41) H 03/17/21 09:41 Alkaline Phosphatase 101 IU/L (40-130) 03/17/21 09:41 Total Protein 7.1 g/dL (6.6-8.7) 03/17/21 09:41 Albumin 4.1 g/dL (3.5-5.2) 03/17/21 09:41 Globulin 3.0 g/dL (1.3-4.6) 03/17/21 09:41 Lipase 19 U/L (13-60) 03/17/21 09:41 Urine Color Yellow (Yellow) 03/17/21 09:56 Urine Appearance Clear (CLEAR) 03/17/21 09:56 Urine pH 5 (5-7) 03/17/21 09:56 Ur Specific Uriah 1.020 (1.005-1.030) 03/17/21 09:56 Urine Protein Neg (Negative) 03/17/21 09:56 Urine Glucose (UA) 4+ (Normal) H 03/17/21 09:56 Urine Ketones Negative (Negative) 03/17/21 09:56 Urine Blood Neg (Negative) 03/17/21 09:56 Urine Nitrate Negative (Negative) 03/17/21 09:56 Urine Bilirubin Neg (Negative) 03/17/21 09:56 Urine Urobilinogen Norm mg/dL (Negative) 03/17/21 09:56 Ur Leukocyte Esterase Negative (Negative) 03/17/21 09:56 Urine RBC None /hpf (0-2) 03/17/21 09:56 Urine WBC None /hpf (0-5) 03/17/21 09:56 Ur Squamous Epith Cells None /hpf (0-5) 03/17/21 09:56 Amorphous Sediment Not Reportable 03/17/21 09:56 Urine Bacteria None /hpf (NONE) 03/17/21 09:56 Impressions Abdomen/Pelvis CT 03/17/21 09:30 IMPRESSION: 1. Diffuse wall thickening involving the sigmoid colon with surrounding induration and inflammatory changes consistent with acute diverticulitis. Associated luminal narrowing. This appears slightly progressed compared to the previous examination. 2. Recommend follow-up to resolution to exclude underlying neoplasm. 3. Suspected sigmoid colon anastomosis with suture line. If no history of colon surgery, consider impacted needlelike foreign body in this area contributing to diverticulitis. 4. No other significant changes from previous. 5. No drainable abscess or fluid collection. Notified GHANSHYAM Shaw at 03/17/2021 10:26 AM. A&P Assessment and plan (1) Abdominal pain: Status: Acute Qualifiers: Abdominal location: lower abdomen, unspecified Qualified Code(s): R10.30 - Lower abdominal pain, unspecified (2) Diverticulitis: Status: Acute (3) Type 2 diabetes mellitus: Status: Acute Qualifiers: Diabetes mellitus complication status: with hyperglycemia Diabetes mellitus intermediate manager insulin use: without intermediate manager use Qualified Code(s): E11.65 - Type 2 diabetes mellitus with hyperglycemia (4) Essential hypertension: Status: Acute (5) Mixed hyperlipidemia: Status: Acute (6) Weight loss: Status: Acute Additional A&P Information 55-year-old gentleman past medical history Of diabetes mellitus, hypertension presented to the ER today with ongoing on and off abdominal pain and diarrhea for last 1 month found to have diverticulitis on CT scan getting mildly worse as compared to CT scan done a week ago and has failed outpatient oral antibiotic therapy with ciprofloxacin and Flagyl. Abdominal pain secondary to diverticulitis: Most likely infectious. Cannot rule out secondary to Metformin. Not in sepsis. Patient has leukocytosis but does not have any fever, tachycardia, tachypnea at present. Check procalcitonin, stool study for C. difficile, enteric bacterial parasitic panel, urine bacterial antigen, blood culture, MRSA swab, CRP, stool lactoferrin, lactate, ESR. Start patient on normal saline 100 cc/h. Stop Cipro and Flagyl. Start patient on Zosyn. Will change antibiotics as per the culture results. Given the 16 pound weight loss, ongoing symptoms for around a month patient would need a colonoscopy to rule out cancer especially with significant family history of cancer once her acute diverticulitis has settled. Type 2 diabetes mellitus: A1c recently done 10.8. Start patient on insulin sliding scale. Levemir 20 units. Stop OHA's. Did discuss with patient that it is quite possible her symptoms are secondary to Metformin and for now on discharge given his elevated A1c he would benefit with insulin and he is agreeing agrees to starting the same. Hypertension: Goal blood pressure less than 140/90 of Hg. Continue with home dose of lisinopril. Will uptitrate medications accordingly. Check iron panel, TSH. Patient recently had A1c lipid panel done. Continue chronic medication including aspirin, statin, cyclobenzaprine as needed. CODE STATUS full code. Regular diet. Lovenox will help with DVT prophylaxis. Attestations Medical Necessity Statement*: Admission for more than 2 midnights for management of abdominal pain secondary to diverticulitis Time Spent in Patient Care: Greater than 35 minutes (>than 50% of time spent in counselling and/or direct pt care on unit). Coding Level of Care Code Acute Rn Mental Health for Chg Fwd Diagnoses Abdominal pain R10.30 Abdominal location: lower abdomen, unspecified Diverticulitis K57.92 Type 2 diabetes mellitus E11.65 Diabetes mellitus complication status: with hyperglycemia Diabetes mellitus correction insulin use: without intermediate manager use Essential hypertension I10 Mixed hyperlipidemia E78.2 Weight loss R63.4
[2021-03-17 13:54] LABS: Procalcitonin 0.03 ng/mL (0-0.5)
[2021-03-17 13:55] LABS: Thyroid Stimulating Hormone 1.29 uIU/mL (0.27-4.20)
[2021-03-17] MEDS: piperacillin-tazobactam 3.375 GM in sodium chloride 0.9% (plus) 50 ML IV ×2 (14:14→23:13)
[2021-03-17 14:24] LABS: Iron 44 ug/dL (59-158); Percent Saturation 18.3 % (20-50); Total Iron Binding Capacity 240 mcg/dl; Unsaturated Iron Binding 196 ug/dL (112-347)
[2021-03-17] MEDS: sodium chloride 0.9% 1,000 ML 100 ML IV ×2 (14:34→23:13)
[2021-03-17 16:22] LABS: NT Pro B Type Natriuretic Pept 44 pg/mL (0-125)
[2021-03-17 17:07] LABS: Erythrocyte Sedimentation Rate 24 mm/hr (0-10)
[2021-03-17 17:09] LABS: Lactic Sepsis W/Reflex 1.2 mmol/L (0.5-2.2)
[2021-03-17 17:28] LABS: Glucose Point of Care 298 mg/dL (70-110)
[2021-03-17] MEDS: TRAMadol 50 mg Tablet PO (19:28)
[2021-03-17 21:08] LABS: Glucose Point of Care 278 mg/dL (70-110)
[2021-03-17] MEDS: famotidine 20 mg/2 mL INJ IVP (21:19)
[2021-03-18 03:50] VITALS: BP 116/72; PULSE 57; RESP 16; TEMP 36.6; O2SAT 97
[2021-03-18] MEDS: piperacillin-tazobactam 3.375 GM in sodium chloride 0.9% (plus) 50 ML IV ×3 (05:39→22:29)
--- NOTE | 2021-03-18 06:16 | PC.NURSE ---
shift summary Patient did well with pain tonight, only took one pain pill before bed. Pt was upset with the roommate he had and has requested to be moved to another room states He as not been able to get any sleep all night. This nurse reported this to charge nurse, and she wet and visiited with patient. Patient will be moved to a different room when one becomes available.
[2021-03-18 06:30] LABS: Glucose Point of Care 164 mg/dL (70-110)
[2021-03-18 06:31] LABS: Basophils # 0.1 10^3/uL (0.0-0.1); Basophils % 0.8 %; Eosinophils # 0.5 10^3/uL (0.0-0.8); Eosinophils % 5.5 %; Hematocrit 40.1 % (42.0-52.0); Hemoglobin 13.8 g/dL (11.7-16.6); Lymphocytes % 22.1 %; Mean Corpuscular HGB Conc 34.4 g/dL (30.0-36.0); Mean Corpuscular Hemoglobin 32.2 pg (28.0-34.0); Mean Corpuscular Volume 93.5 fL (80-94); Mean Platelet Volume 9.9 fL (7.4-10.4); Monocytes # 0.8 10^3/uL (0.2-0.9); Neutrophils # 5.75 10^3/uL (1.8-7.7); Neutrophils % 62.2 %; Nucleated Red Blood Cells % 0 %; Platelet Count 248 10^3/cmm (130-400); Red Blood Count 4.29 10^6/uL (4.1-5.3); Red Cell Distribution Width 12.1 % (12.1-15.1); White Blood Count 9.2 10^3/uL (4.0-10.0)
[2021-03-18 06:49] LABS: Alanine Aminotransferase 30 U/L (0-41); Albumin Level 3.1 g/dL (3.5-5.2); Alkaline Phosphatase 73 IU/L (40-130); Aspartate Amino Transferase 16 U/L (0-40); Blood Urea Nitrogen 9 mg/dL (6-20); C Reactive Protein 16.6 mg/L (0.0-4.9); Calcium 8.3 mg/dL (8.5-10.5); Carbon Dioxide 29 mmol/L (22-29); Chloride 104 mmol/L (98-107); Globulin 2.6 g/dL (1.3-4.6); Glomerular Filtration Rate 171.4 mL/min (90-130); Glucose 158 mg/dL (65-115); Magnesium 1.5 mg/dL (1.7-2.3); Osmolality Calculated 290 mOsm/kg (285-295); Phosphorus 3.8 mg/dL (2.5-4.5); Sodium 139 mmol/L (136-145); Total Bilirubin 0.9 mg/dL (0.15-1.2); Total Protein 5.7 g/dL (6.6-8.7)
[2021-03-18 07:20] LABS: Potassium 3.7 mmol/L (3.5-5.1)
[2021-03-18 07:21] LABS: Anion Gap 9.7 (5-19)
[2021-03-18 07:23] VITALS: BP 110/69; PULSE 55; RESP 18; TEMP 36.5; O2SAT 100
[2021-03-18] MEDS: lisinopril 10 mg Tablet PO (08:32)
[2021-03-18] MEDS: aspirin 81 mg EC Tablet PO (08:32)
[2021-03-18] MEDS: atorvastatin 40 mg Tablet 80 MG PO (08:32)
[2021-03-18] MEDS: famotidine 20 mg/2 mL INJ IVP ×2 (08:33→21:00)
[2021-03-18] MEDS: sodium chloride 0.9% 1,000 ML 100 ML IV ×2 (10:14→20:28)
--- NOTE | 2021-03-18 10:35 | PC.CHAP ---
Pastoral Care Encounter/Spiritual Assessment Type of Contact [] Declined band maker visit [] Patient/Family/Request visit [] Outpatient visit [] Follow-up visit [] Physician referral [] Code/Alert [x] Routine visit [] Staff referral [] Actively dying [] Patient sleeping [] Family support [] [] Out of room [] Palliative care [] [] Receiving care in room [] Pre-surgical visit [] Trauma [] Long length of stay [] ICU visit [] Other: Relational/Emotional Strength [x] Patient feels connected with others/family/visitors/staff [] Distress [] Loneliness/isolation [] Abandonment Spirituality of Patient [x] Person of Tanya [x] Attends Adventism of their Tanya [x] Believes in Prayer [] Reads Bible or Pentecostal materials [] There are Spiritual issues to be addressed Travel Occupational Therapist Interventions [x] Prayer [x] Active listening [] Non-anxious presence [] Spiritual/emotional support [] Crisis/trauma care [] Spiritual counseling [] Bereavement support [] Provided bereavement packet [] Provided Bible/devotional materials [] Provided toy/stuffed animal, coloring book to patient or family member [] Provided Communion [] Anointing/[place] [] Salvation [x] Completed spiritual assessment [] Other: Impact on Illness or Injury [] Angry [] Fearful [] Anxious [] Often cries [] Exhaustion [] Unable to work [] Unable to attend anabaptist [] Unable to walk/stand [] Unable to read [] Unable to drive [] Unable to eat/drink [] Unable to sleep [] Unable to be with family [] Patient intubated [] Other: Summary Time spent with patient 10 min
[2021-03-18 11:16] LABS: Glucose Point of Care 284 mg/dL (70-110)
[2021-03-18 11:57] VITALS: BP 132/74; PULSE 54; RESP 18; TEMP 36.8; O2SAT 97
--- NOTE | 2021-03-18 13:15 | P.PN_ITS ---
Subjective Subjective: Interval history: No acute events overnight. Patient states he is feeling a lot better today. States he has not had any further diarrhea and abdominal cramps have improved as well. States appetite is appropriate. Denies any nausea or vomiting. States he is feeling stronger today. Vitals/I&O/Wt Last Vital Signs Temp 98.2 F 03/18/21 11:57 Pulse 54 L 03/18/21 11:57 Resp 18 03/18/21 11:57 BP 132/74 03/18/21 11:57 Pulse Ox 97 03/18/21 11:57 03/17/21 03/18/21 03/18/21 22:59 06:59 14:59 Intake Total 1050 / 1050 1107.917 / 2157.917 1410 / 1410 Output Total 200 / 200 Balance 850 / 850 1107.917 / 1821.571 8947 / 1410 Weight last 48 hrs Weight 85.411 kg Weight 85.275 kg Physical Exam Narrative: EXAM NARRATIVE: General: No acute distress, AO x3 HEENT: PERRLA, pupils bilaterally equal and reactive Chest: Normal vesicular breath sounds, no added sounds, equal good air entry bilaterally CVS: S1-S2 regular, no murmurs, no tachycardia, no gallops, no rubs Abdomen: Soft, mild tenderness in periumbilical and lower abdomen , no organomegaly, bowel sounds present, no guarding no rigidity Neuro: No focal deficits, no facial deformity, AO x3, power 5/5 in all limbs Data : 03/18/21 05:41 03/18/21 05:41 Micro: Microbiology 03/17/21 17:15 Stool Lactoferrin - Final Stool Enteric Pathogens (PCR) - Final C.difficile Toxin B Gene (PCR) - Final Occult Blood (FIT) - Final 03/17/21 17:15 Legionella Urinary Antigen - Preliminary Urine,Voided 03/17/21 09:56 Bacterial Antigens - Final Urine Kidney 03/17/21 13:44 Blood Culture - Preliminary Blood SPECIMEN COLLECTED 03/17/21 13:47 Blood Culture - Preliminary Blood SPECIMEN COLLECTED A&P Assessment and plan (1) Abdominal pain: Status: Acute Qualifiers: Abdominal location: lower abdomen, unspecified Qualified Code(s): R10.30 - Lower abdominal pain, unspecified (2) Diverticulitis: Status: Acute (3) Type 2 diabetes mellitus: Status: Acute Qualifiers: Diabetes mellitus intermediate teacher insulin use: without intermediate use Diabetes mellitus complication status: with hyperglycemia Qualified Code(s): E11.65 - T ype 2 diabetes mellitus with hyperglycemia (4) Essential hypertension: Status: Acute (5) Mixed hyperlipidemia: Status: Acute (6) Weight loss: Status: Acute Additional A&P Information 55-year-old gentleman past medical history Of diabetes mellitus, hypertension presented to the ER today with ongoing on and off abdominal pain and diarrhea for last 1 month found to have diverticulitis on CT scan getting mildly worse as compared to CT scan done a week ago and has failed outpatient oral antibiotic therapy with ciprofloxacin and Flagyl. Abdominal pain secondary to diverticulitis: Most likely infectious. Cannot rule out secondary to Metformin. Not in sepsis. Patient has leukocytosis but does not have any fever, tachycardia, tachypnea at present. Pro-Wero negative, CTA negative, blood culture has remained negative for now. Continue with Zosyn. Patient is eating appropriately. IV fluids. ESR, CRP mildly elevated. Stool lactoferrin positive. Stool occult blood positive most likely seen with diverticulitis. Patient's hemoglobin is stable. Enteric bacterial panel and C. difficile negative. Will await for parasite panel. Given the 16 pound weight loss, ongoing symptoms for around a month patient would need a colonoscopy to rule out cancer especially with significant family history of cancer once her acute diverticulitis has settled. Type 2 diabetes mellitus: A1c recently done 10.8. Patient has required 16 units of Humalog last night. Continue Levemir 10 units nightly. Will monitor blood sugar and insulin requirement in last 24 hours and plan to discharge on Levemir as an outpatient. Stop OHA's. Did discuss with patient that it is quite possible her symptoms are secondary to Metformin and for now on discharge given his elevated A1c he would benefit with insulin and he is agreeing agrees to starting the same. Hypertension: Goal blood pressure less than 140/90 of Hg. Continue with home dose of lisinopril. Continue chronic medication including aspirin, statin, cyclobenzaprine as needed. Replace magnesium with 2 mg IV. CODE STATUS full code. Regular diet. Lovenox will help with DVT prophylaxis. Discharge planning: If patient continues to do well can plan to discharge in next 24 hours. Most likely patient will need outpatient oral antibiotics to finish a course of antibiotics in 7 days. Patient will need a colonoscopy as an outpatient. Attestations Medical Necessity Statement*: Patient requires further hospitalization for management of diverticulitis. Time Spent in Patient Care: Greater than 35 minutes (>than 50% of time spent in counselling and/or direct pt care on unit) . Coding Level of Care Code Acute Test Director for Chg Fwd Diagnoses Abdominal pain R10.30 Abdominal location: lower abdomen, unspecified Diverticulitis K57.92 Type 2 diabetes mellitus E11.65 Diabetes mellitus intermediate teacher insulin use: without intermediate teacher use Diabetes mellitus complication status: with hyperglycemia Essential hypertension I10 Mixed hyperlipidemia E78.2 Weight loss R63.4
[2021-03-18 16:00] VITALS: BP 116/75; PULSE 55; RESP 17; TEMP 36.9; O2SAT 98
[2021-03-18 17:11] LABS: Glucose Point of Care 277 mg/dL (70-110)
[2021-03-18] MEDS: enoxaparin 40 mg/0.4 mL Syringe SUBCUT (18:25)
[2021-03-18] MEDS: ferrous gluconate 324 mg Tablet PO (18:25)
[2021-03-18 19:50] VITALS: BP 121/70; PULSE 63; RESP 14; TEMP 36.8; O2SAT 96
[2021-03-18 21:15] LABS: Glucose Point of Care 250 mg/dL (70-110)
[2021-03-18 23:42] VITALS: BP 150/85; PULSE 57; RESP 16; TEMP 36.7; O2SAT 97
[2021-03-19 03:24] VITALS: BP 137/82; PULSE 54; RESP 14; TEMP 36.6; O2SAT 98
[2021-03-19 03:28] LABS: Basophils # 0.1 10^3/uL (0.0-0.1); Basophils % 0.7 %; Eosinophils # 0.5 10^3/uL (0.0-0.8); Eosinophils % 5.7 %; Hematocrit 39.8 % (42.0-52.0); Hemoglobin 13.6 g/dL (11.7-16.6); Lymphocytes # 2.2 10^3/uL (0.8-4.8); Mean Corpuscular HGB Conc 34.2 g/dL (30.0-36.0); Mean Corpuscular Hemoglobin 31.6 pg (28.0-34.0); Mean Corpuscular Volume 92.6 fL (80-94); Mean Platelet Volume 9.3 fL (7.4-10.4); Monocytes # 0.9 10^3/uL (0.2-0.9); Neutrophils % 58.4 %; Nucleated Red Blood Cells % 0 %; Platelet Count 237 10^3/cmm (130-400); Red Cell Distribution Width 11.9 % (12.1-15.1); White Blood Count 8.9 10^3/uL (4.0-10.0)
[2021-03-19] MEDS: TRAMadol 50 mg Tablet PO (03:45)
[2021-03-19 03:47] LABS: Alanine Aminotransferase 26 U/L (0-41); Albumin Level 3.1 g/dL (3.5-5.2); Alkaline Phosphatase 76 IU/L (40-130); Anion Gap 9.4 (5-19); Aspartate Amino Transferase 15 U/L (0-40); Blood Urea Nitrogen 7 mg/dL (6-20); Calcium 7.9 mg/dL (8.5-10.5); Carbon Dioxide 30 mmol/L (22-29); Chloride 107 mmol/L (98-107); Globulin 2.5 g/dL (1.3-4.6); Glomerular Filtration Rate 138.9 mL/min (90-130); Glucose 136 mg/dL (65-115); Osmolality Calculated 296 mOsm/kg (285-295); Potassium 3.4 mmol/L (3.5-5.1); Sodium 143 mmol/L (136-145); Total Bilirubin 0.7 mg/dL (0.15-1.2); Total Protein 5.6 g/dL (6.6-8.7)
[2021-03-19 03:48] LABS: Creatinine Clr Calc Pharmacy 145.5712
[2021-03-19] MEDS: sodium chloride 0.9% 1,000 ML 100 ML IV (06:10)
[2021-03-19] MEDS: piperacillin-tazobactam 3.375 GM in sodium chloride 0.9% (plus) 50 ML IV (06:10)
[2021-03-19 06:17] LABS: Glucose Point of Care 125 mg/dL (70-110)
[2021-03-19 07:35] VITALS: BP 119/76; PULSE 55; RESP 17; TEMP 36.7; O2SAT 96
[2021-03-19] MEDS: ferrous gluconate 324 mg Tablet PO (08:16)
[2021-03-19] MEDS: atorvastatin 40 mg Tablet 80 MG PO (08:16)
[2021-03-19] MEDS: aspirin 81 mg EC Tablet PO (08:16)
[2021-03-19] MEDS: lisinopril 10 mg Tablet PO (08:16)
[2021-03-19] MEDS: famotidine 20 mg/2 mL INJ IVP (08:17)
[2021-03-19 11:12] LABS: Glucose Point of Care 190 mg/dL (70-110)
--- NOTE | 2021-03-19 11:15 | PM.DCS ---
Discharge Providers Date of Admission: 03/17/21 12:01 Date of Discharge: March 19, 2021 Attending Provider at Admission: Iggy Glass MD Attending Provider at Discharge: Iggy Glass MD Primary Care Provider: Nisreen Pineda MD Diagnoses at Discharge Discharge Diagnosis (1) Abdominal pain: Status: Acute Qualifiers: Abdominal location: lower abdomen, unspecified Qualified Code(s): R10.30 - Lower abdominal pain, unspecified (2) Diverticulitis: Status: Acute (3) Type 2 diabetes mellitus: Status: Acute Qualifiers: Diabetes mellitus complication status: with hyperglycemia Diabetes mellitus residential insulin use: without residential use Qualified Code(s): E11.65 - Type 2 diabetes mellitus with hyperglycemia (4) Essential hypertension: Status: Acute (5) Mixed hyperlipidemia: Status: Acute (6) Weight loss: Status: Acute Reason for Visit Reason for Visit: severe lower ABD cramping Hospital Course Hospital Course Karan Castro is a 55 year old male with past medical history of hypertension, restless leg syndrome, type 2 diabetes mellitus with A1c of 10.8 presented to the ER today because of lower abdominal cramps, diarrhea. Patient states he has been having symptoms on and off for last 1 month. He states first he thought it was because of the new Jardiance which was started for him around 6 weeks ago and since stopping the medication his symptoms have slightly reduced but are still persisting. He complains of crampy lower abdominal pain which gets relieved after bowel movements, and passing flatus. He is also complaining of intermittent almost daily watery bowel movements. Bowel movements are no fissures not associated with melena, foul smell. He states he has a bowel movement even when he is going to pass urine. Complaining of on and off occasional dysuria with burning sensation and some burning sensation while having bowel movements. Denies any vomiting but has occasional nausea with decreased appetite. As per the family member at bedside patient has lost around 16 pounds in 2 weeks. Patient has never had colonoscopy or EGD in the past. Has significant family history with cancers in both maternal and paternal side. Denies any recent travels, states his son is having also similar symptoms but that they are associated with working in heat. Family consumes well water and has not checked well water in a long time. Denies any sick contacts, subjective fever fevers, headache, weakness in any of her arms or legs. Patient had presented to his PCP a week ago with similar complaints and at that time was started on Cipro and Flagyl without any resolution of symptoms. Blood work in the ER showed a white count 12,000, hemoglobin of 16.7, sodium of 137, chloride of 100, BUN of 10, creatinine of 0.5, AST/ALT of 29/48, urinalysis negative for any signs of infection with negative nitrite and leukoesterase. CT abdomen results as below. Patient under the hospital for management of a possible diverticulitis with failure of outpatient oral therapy. He was started on IV fluids and broad-spectrum antibiotics to which he responded well and did not have any further episodes of diarrhea. Stool studies were done and were negative. Etiology of patient's ongoing abdominal pain and diarrhea could be secondary to diverticulitis versus possible contaminant use of Metformin and Jardiance as an outpatient while it is prudent to rule out malignancy as patient has never had colonoscopy in the past and has a strong family history of cancers along with personal history of loss of body weight. Patient responded well to the treatment is been discharged on oral Augmentin for 2 more days with advised to keep up with his appointment for colonoscopy with Dr. Meng on March 24. He has been advised to stop taking OHA's and start on Levemir. Patient is agreeable to same. He is been discharged on 25 units of Levemir every morning. He is to check his blood sugar daily and maintain a blood sugar diary to follow-up with his primary care provider within next 1 week to see if any further adjustment to Levemir dose is needed. Please also been advised if his fasting blood sugars are less than 90, he is to decrease the dose of Levemir by 3 units and if they are more than 200 to increase the dose by 3 units by himself. Physical Exam Narrative: EXAM NARRATIVE: General: No acute distress, AO x3 HEENT: PERRLA, pupils bilaterally equal and reactive Chest: Normal vesicular breath sounds, no added sounds, equal good air entry bilaterally CVS: S1-S2 regular, no murmurs, no tachycardia, no gallops, no rubs Abdomen: Soft, mild tenderness in periumbilical and lower abdomen , no organomegaly, bowel sounds present, no guarding no rigidity Neuro: No focal deficits, no facial deformity, AO x3, power 5/5 in all limbs Discharge Data Data Completed and Pending: Completed Studies During Hospitalization Category Date Time Status CT abdomen pelvis w con* [id number] Urge nt Cat Scan 03/17/21 09:30 Completed Pending at discharge Category Date Time Status Blood Culture Sta t Lab 03/17/21 13:44 Results Legionella Antige n STAT Routine Lab 03/17/21 17:15 Results MRSA by PCR Routi ne Lab 03/18/21 15:00 Received Labs from last 24 hours 03/19/21 03/19/21 03/19/21 11:05 06:07 03:15 WBC RBC Hgb Hct MCV MCH MCHC RDW Plt Count MPV Neut % (Auto) Lymph % (Auto) Fallon % (Auto) Eos % (Auto) Baso % (Auto) Neut # (Auto) Lymph # (Auto) Fallon # (Auto) Eos # (Auto) Baso # (Auto) Nucleated RBC % (a uto) Nucleated RBCs # Sodium 143 Potassium 3.4 L Chloride 107 Carbon Dioxide 30 H Anion Gap 9.4 BUN 7 Creatinine 0.6 L GFR Calculation 138.9 H Glucose 136 H POC Glucose 190 H 125 H Calculated Osmolal ity 296 H Calcium 7.9 L Total Bilirubin 0.7 AST 15 ALT 26 Alkaline Phosphata se 76 Total Protein 5.6 L Albumin 3.1 L Globulin 2.5 03/19/21 03/18/21 03/18/21 03:15 21:07 17:00 WBC 8.9 RBC 4.30 Hgb 13.6 Hct 39.8 L MCV 92.6 MCH 31.6 MCHC 34.2 RDW 11.9 L Plt Count 237 MPV 9.3 Neut % (Auto) 58.4 Lymph % (Auto) 25.0 Fallon % (Auto) 10.0 Eos % (Auto) 5.7 Baso % (Auto) 0.7 Neut # (Auto) 5.20 Lymph # (Auto) 2.2 Fallon # (Auto) 0.9 Eos # (Auto) 0.5 Baso # (Auto) 0.1 Nucleated RBC % (a uto) 0 Nucleated RBCs # 0.0 Sodium Potassium Chloride Carbon Dioxide Anion Gap BUN Creatinine GFR Calculation Glucose POC Glucose 250 H 277 H Calculated Osmolal ity Calcium Total Bilirubin AST ALT Alkaline Phosphata se Total Protein Albumin Globulin 03/18/21 11:13 WBC RBC Hgb Hct MCV MCH MCHC RDW Plt Count MPV Neut % (Auto) Lymph % (Auto) Fallon % (Auto) Eos % (Auto) Baso % (Auto) Neut # (Auto) Lymph # (Auto) Fallon # (Auto) Eos # (Auto) Baso # (Auto) Nucleated RBC % (a uto) Nucleated RBCs # Sodium Potassium Chloride Carbon Dioxide Anion Gap BUN Creatinine GFR Calculation Glucose POC Glucose 284 H Calculated Osmolal ity Calcium Total Bilirubin AST ALT Alkaline Phosphata se Total Protein Albumin Globulin Addt'l Data from Hospital Stay: Laboratory Results WBC 8.9 10^3/uL (4.0- 10.0) 03/19/21 03:15 RBC 4.30 10^6/uL (4.1 -5.3) 03/19/21 03:15 Hgb 13.6 g/dL (11.7-1 6.6) 03/19/21 03:15 Hct 39.8 % (42.0-52.0 ) L 03/19/21 03:15 MCV 92.6 fL (80-94) 03/19/21 03:15 MCH 31.6 pg (28.0-34. 0) 03/19/21 03:15 MCHC 34.2 g/dL (30.0-3 6.0) 03/19/21 03:15 RDW 11.9 % (12.1-15.1 ) L 03/19/21 03:15 Plt Count 237 10^3/cmm (130 -400) 03/19/21 03:15 MPV 9.3 fL (7.4-10.4) 03/19/21 03:15 Neut % (Auto) 58.4 % 03/19/21 03:15 Lymph % (Auto) 25.0 % 03/19/21 03:15 Fallon % (Auto) 10.0 % 03/19/21 03:15 Eos % (Auto) 5.7 % 03/19/21 03:15 Baso % (Auto) 0.7 % 03/19/21 03:15 Neut # (Auto) 5.20 10^3/uL (1.8 -7.7) 03/19/21 03:15 Lymph # (Auto) 2.2 10^3/uL (0.8- 4.8) 03/19/21 03:15 Fallon # (Auto) 0.9 10^3/uL (0.2- 0.9) 03/19/21 03:15 Eos # (Auto) 0.5 10^3/uL (0.0- 0.8) 03/19/21 03:15 Baso # (Auto) 0.1 10^3/uL (0.0- 0.1) 03/19/21 03:15 Nucleated RBC % (a uto) 0 % 03/19/21 03:15 Nucleated RBCs # 0.0 /100WBC 03/19/21 03:15 ESR 24 mm/hr (0-10) H 03/17/21 09:41 Sodium 143 mmol/L (136-1 45) 03/19/21 03:15 Potassium 3.4 mmol/L (3.5-5 .1) L 03/19/21 03:15 Chloride 107 mmol/L (98-10 7) 03/19/21 03:15 Carbon Dioxide 30 mmol/L (22-29) H 03/19/21 03:15 Anion Gap 9.4 (5-19) 03/19/21 03:15 BUN 7 mg/dL (6-20) 03/19/21 03:15 Creatinine 0.6 mg/dL (0.7-1. 2) L 03/19/21 03:15 GFR Calculation 138.9 mL/min (90- 130) H 03/19/21 03:15 Glucose 136 mg/dL (65-115 ) H 03/19/21 03:15 POC Glucose 190 mg/dL (70-110 ) H 03/19/21 11:05 Calculated Osmolal ity 296 mOsm/kg (285- 295) H 03/19/21 03:15 Lactic Acid 1.2 mmol/L (0.5-2 .2) 03/17/21 16:14 Calcium 7.9 mg/dL (8.5-10 .5) L 03/19/21 03:15 Phosphorus 3.8 mg/dL (2.5-4. 5) 03/18/21 05:41 Magnesium 1.5 mg/dL (1.7-2. 3) L 03/18/21 05:41 Iron 44 ug/dL (59-158) L 03/17/21 09:41 TIBC 240 mcg/dl 03/17/21 09:41 % Saturation 18.3 % (20-50) L 03/17/21 09:41 Unsat Iron Binding 196 ug/dL (112-34 7) 03/17/21 09:41 Total Bilirubin 0.7 mg/dL (0.15-1 .2) 03/19/21 03:15 AST 15 U/L (0-40) 03/19/21 03:15 ALT 26 U/L (0-41) 03/19/21 03:15 Alkaline Phosphata se 76 IU/L (40-130) 03/19/21 03:15 C-Reactive Protein 16.6 mg/L (0.0-4. 9) H 03/18/21 05:41 NT-Pro-B Natriuret Pep 44 pg/mL (0-125) 03/17/21 09:41 Total Protein 5.6 g/dL (6.6-8.7 ) L 03/19/21 03:15 Albumin 3.1 g/dL (3.5-5.2 ) L 03/19/21 03:15 Globulin 2.5 g/dL (1.3-4.6 ) 03/19/21 03:15 Lipase 19 U/L (13-60) 03/17/21 09:41 Carcinoembryonic A g 3.0 ng/mL (0.0-4. 7) 03/17/21 09:41 Procalcitonin 0.03 ng/mL (0-0.5 ) 03/17/21 09:41 TSH 1.29 uIU/mL (0.27 -4.20) 03/17/21 09:41 Urine Color Yellow (Yellow) 03/17/21 09:56 Urine Appearance Clear (CLEAR) 03/17/21 09:56 Urine pH 5 (5-7) 03/17/21 09:56 Ur Specific Gravit y 1.020 (1.005-1.0 30) 03/17/21 09:56 Urine Protein Neg (Negative) 03/17/21 09:56 Urine Glucose (UA) 4+ (Normal) H 03/17/21 09:56 Urine Ketones Negative (Negati ve) 03/17/21 09:56 Urine Blood Neg (Negative) 03/17/21 09:56 Urine Nitrate Negative (Negati ve) 03/17/21 09:56 Urine Bilirubin Neg (Negative) 03/17/21 09:56 Urine Urobilinogen Norm mg/dL (Negat osei) 03/17/21 09:56 Ur Leukocyte Stephanie ase Negative (Negati ve) 03/17/21 09:56 Urine RBC None /hpf (0-2) 03/17/21 09:56 Urine WBC None /hpf (0-5) 03/17/21 09:56 Ur Squamous Epith Cells None /hpf (0-5) 03/17/21 09:56 Amorphous Sediment Not Reportable 03/17/21 09:56 Urine Bacteria None /hpf (NONE) 03/17/21 09:56 Impressions Abdomen/Pelvis CT 03/17/21 09:30 IMPRESSION: 1. Diffuse wall thickening involving the sigmoid colon with surrounding induration and inflammatory changes consistent with acute diverticulitis. Associated luminal narrowing. This appears slightly progressed compared to the previous examination. 2. Recommend follow-up to resolution to exclude underlying neoplasm. 3. Suspected sigmoid colon anastomosis with suture line. If no history of colon surgery, consider impacted needlelike foreign body in this area contributing to diverticulitis. 4. No other significant changes from previous. 5. No drainable abscess or fluid collection. Notified GHANSHYAM Shaw at 03/17/2021 10:26 AM. Microbiology 03/17/21 17:15 Stool C.difficile Toxin B Gene (PCR) - Final 03/17/21 17:15 Stool Stool Lactoferrin - Final 03/17/21 17:15 Stool Enteric Pathogens (PCR) - Final 03/17/21 17:15 Stool Parasite Antigen Panel - Final 03/17/21 17:15 Stool C.difficile Toxin B Gene (PCR) - Final 03/17/21 17:15 Stool Occult Blood (FIT) - Final 03/17/21 13:44 Blood Blood Culture - Preliminary NEGATIVE TO DATE 03/17/21 13:47 Blood Blood Culture - Preliminary NEGATIVE TO DATE 03/17/21 17:15 Urine,Voided Legionella Urinary Antigen - Preliminary 03/17/21 09:56 Urine Kidney Bacterial Antigens - Final Vitals: Last Vital Signs Temp 98.0 F 03/19/21 07:35 Pulse 55 L 03/19/21 07:35 Resp 17 03/19/21 07:35 BP 119/76 03/19/21 07:35 Pulse Ox 96 03/19/21 07:35 Discharge Plan Discharge Patient Disposition: Home Condition: Stable Prescriptions: New ferrous gluconate 324 mg (37.5 mg iron) Tablet 324 mg PO BIDWM Qty: 60 RF: 0 Augmentin 500-125 mg tablet 1 tab PO BID Qty: 4 RF: 0 Continued albuterol sulfate [Ventolin HFA] 90 mcg/actuation HFA aerosol inhaler 2 puff INHALATION QID PRN (Reason: shortness of breath or wheezing) Qty: 8 RF: 1 celecoxib [Celebrex] 200 mg capsule 200 mg PO BID Qty: 60 RF: 0 cyclobenzaprine 10 mg tablet 10 mg PO TID PRN (Reason: muscle spasm) Qty: 30 RF: 0 tramadol 50 mg tablet 50 mg PO TID PRN (Reason: pain) 10 Days Qty: 30 RF: 0 aspirin 81 mg tablet,delayed release (DR/EC) 81 mg PO DAILY RF: 0 omega-3 fatty acids 1,000 mg capsule 1,000 mg PO DAILY RF: 0 Lipitor 80 mg tablet 80 mg PO DAILY RF: 0 famotidine 20 mg tablet 20 mg PO DAILY RF: 0 benazepril 10 mg tablet 10 mg PO DAILY RF: 0 Flagyl 500 mg tablet 500 mg PO TID Qty: 10 RF: 0 Changed Levemir FlexTouch U-100 Insuln 100 unit/mL (3 mL) insulin pen 25 unit SUBCUT DAILY Qty: 15 RF: 5 Discontinued ciprofloxacin HCl [Cipro] 500 mg tablet 500 mg PO BID Qty: 20 RF: 0 metformin 500 mg tablet 1,000 mg PO BID RF: 0 Discharge Orders: Discharge Order (Routine); Ordered 03/19/21 Ordered By: Iggy Glass Referrals: Rey Meng MD [Physician] - 03/24/21 11:30 am (colonoscopy) Nisreen Pineda MD [Primary Care Provider] - 03/25/21 1:20 pm (Blood sugar diary and further adjustment of levemir dose) Discharge Diet: Diabetic and GI Soft Discharge Activity: Resume usual activity Patient Instructions: Diverticulitis, Iron Supplements (By mouth), Amoxicillin/Clavulanate Potassium (By mouth), Opioid Safety Activity Restrictions/Additional Instructions: Please stop taking Jardiance and Metformin at home. You will be on Levemir 25 units daily to be taken in morning. 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 If your blood sugars are less than 90 start taking 22 units blood sugars are more than 150 start taking 28 units daily. You will be on outpatient for 2 more days to finish a course of antibiotics. Please follow-up with Dr. Meng on already set appointment for colonoscopy to rule out malignancy. Discharge Attestations Time Spent in Discharge Care*: greater than 30 min Specific Discharge Activities: educating patient, educating and/or supporting family/caregiver, discussing with pcp/other providers, discussing with case management rn/social workers/dc planners, documenting/other paperwork and evaluating patient/reviewing data Status at Discharge: Cognitive status at discharge: cognitively intact, Behavioral status at discharge: cooperative, Functional status at discharge: independent ambulation Overall status at discharge: patient is back to baseline Quality Metrics Clinical Quality Measures During this hospital stay, did patient experience: None Coding Level of Care Code Acute [facility] DC note Diagnoses Abdominal pain R10.30 Abdominal location: lower abdomen, unspecified Diverticulitis K57.92 Type 2 diabetes mellitus E11.65 Diabetes mellitus complication status: with hyperglycemia 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
[2021-03-19 11:45] VITALS: BP 118/72; PULSE 56; RESP 17; TEMP 36.7; O2SAT 978
--- NOTE | 2021-03-19 12:38 | PC.NURSE ---
PT HAS DONE WELL TODAY. PT HAS NOT HAD ANY COMPLAINTS OF PAIN. PT IS WANTING TO DISCHARGE. PLANS TO DISCHARGE PT HAVE BEEN DISCUSSED. IV WAS REMOVED BY ANOTHER NURSE. PT TOLERATED THAT WELL. DISCHARGE PAPERWORK GONE OVER WITH PT. ALL QUESTIONS ANSWERED. PT REQUESTED TO AMBULATE OUT OF HOSPITAL. THIS NURSE WALKED PT AND OUT OF HOSPITAL. PT SAFELY DISCHARGED FROM HOSPITAL.
[2021-03-19 12:39] VITALS: BP 118/72; PULSE 56; RESP 17; TEMP 36.7; O2SAT 978
--- NOTE | 2021-03-20 20:13 | PC.RESP ---
Smoking Cessation information sent to patient.
== END 2021-03-19 12:40 | disposition home or self-care (01) | DRG 392 ==
LOC: ER 11:41 → MEDSURG 13:37
PROVIDERS: Physician Assistant; Admitting Provider Student in an Organized Health Care Education/Training Program; Emergency Provider Family Medicine; PCP Family Medicine; Visit Provider Student in an Organized Health Care Education/Training Program
DX: K57.32 Diverticulitis of large intestine without perforation or abscess without bleeding (principal); I10 Essential (primary) hypertension; G25.81 Restless legs syndrome; E11.65 Type 2 diabetes mellitus with hyperglycemia; Z80.9 Family history of malignant neoplasm, unspecified; F41.9 Anxiety disorder, unspecified; H91.92 Unspecified hearing loss, left ear; M25.562 Pain in left knee; M25.561 Pain in right knee; K21.9 Gastro-esophageal reflux disease without esophagitis; E78.2 Mixed hyperlipidemia; E04.1 Nontoxic single thyroid nodule; Z87.442 Personal history of urinary calculi; F17.210 Nicotine dependence, cigarettes, uncomplicated; R30.0 Dysuria; Z79.82 Long term (current) use of aspirin
CPT/HCPCS: 36415; 36416; 74177; 80053; 81001; 82274; 82378; 82962; 83540; 83550; 83605; 83630; 83690; 83735; 83880; 84100; 84145; 84443; 85025; 85651; 86140; 86403; 87040; 87449; 87493; 87506; 87641; 94664; 96365; 96367; 96372; 96375; 99285; J1650; J1815; J2270; J2405; J2543; J3490; J7030; Q9967

== ENCOUNTER → 2021-05-05 10:08 | Outpatient (BNVA) | payer MEDICARE, SELFPAY | PROVIDERS: PCP Family Medicine; Visit Provider Surgery | DX: K57.92 Diverticulitis of intestine, part unspecified, without perforation or abscess without bleeding (principal) | CPT/HCPCS: 87635 ==

== ENCOUNTER → 2021-05-11 10:24 | Outpatient (BNVA) | payer MEDICARE, SELFPAY | PROVIDERS: PCP Family Medicine; Visit Provider Surgery | DX: Z20.822 Contact with and (suspected) exposure to COVID-19 (principal) | CPT/HCPCS: 87635 ==

== ENCOUNTER 2021-05-14 09:53 | Day surgery (SDC) | payer MEDICARE, SELFPAY ==
[2021-05-12 09:56] VITALS: BMI 28.5
--- NOTE | 2021-05-14 10:09 | P.ANESASSM_ITS ---
Pre-Anesthetic Assessment Pre-Anesthetic Assessment: Height/Weight: Height 1.73 m Weight 85.275 kg Proposed Procedure: Operation Date: 05/14/21 11:30 Proposed Procedures p Colonoscopy [id number] k57.92(Not Applicable) - Rey Meng MD Was Beta Grayson taken within 24 hours: N/A Was Clonidine taken within 24 hours: N/A Social: Social History: Tobacco and No alcohol Exam: Pre-Anes Outpt Exam: alert, oriented x 3 and regular rate & rhythm Airway: Submandibular: WNL Cervical ROM: WNL MP: 2 Dentition: False (upper) Pulmonary: Pulmonary: COPD CV/HEM: CV/HEM: HTN GI: GI: GERD Metabolic: Metabolic: DM and Hyperlipidemia Anesthetic Plan: ASA status: 3 Anesthesia: MAC Risk of > 500 ml blood loss (7ml/kg in children): No PFSH Anesthesia PFSH: Medical History (Updated 03/25/21 @ 14:15 by Nisreen Pineda MD) Anxiety Decreased hearing of left ear Essential hypertension Left otitis externa Left otitis media with effusion Mild acid reflux Mixed hyperlipidemia Otitis externa RLS (restless legs syndrome) Type 2 diabetes mellitus Surgical History History of left knee surgery History of rotator cuff surgery Family History Other Cancer Diabetes Denies family history of Clotting disorder Social History Smoking and tobacco status: current every day smoker cigarettes Packs smoked per day: 0.5 Years cigarettes smoked: 40 Alcohol intake: current Alcohol intake frequency: few times a week Lives independently: Yes Household members: spouse Housing: House Marital status: Current occupational status: employed History of recent travel: No Current gender identity: Male Data Anesthesia Cardiac Studies: 2 No Data to Display
[2021-05-14 10:19] VITALS: BP 132/85; PULSE 67; RESP 18; TEMP 36.7; O2SAT 99
[2021-05-14] MEDS: sodium chloride 0.9% 1,000 ML 30 ML IV (10:39)
[2021-05-14 10:42] LABS: Glucose Point of Care 218 mg/dL (70-110)
--- NOTE | 2021-05-14 11:18 | P.HP_ITS ---
Same Day Surgery H&P Indication for Procedure/HPI DATE OF PROCEDURE: May 14, 2021 CHIEF COMPLAINT/INDICATIONFOR SURGICAL PROCEDURE: colonoscopy PREOP DIAGNOSIS: diagnostic PLANNED PROCEDRUE: Operation Date: 05/14/21 11:30 Proposed Procedures p Colonoscopy 23564 k57.92(Not Applicable) - Rey Meng MD Medications/Allergies* Home Medications Medication Instructions Recorded Confirmed Type aspirin 81 mg tablet,delayed 81 mg PO DAILY 10/29/19 05/14/21 History release omega-3 fatty acids 1,000 mg 1,000 mg PO DAILY 10/29/19 05/14/21 History capsule atorvastatin [Lipitor] 80 mg PO DAILY 03/17/21 05/14/21 History benazepril 10 mg PO DAILY 03/17/21 05/14/21 History famotidine 20 mg PO DAILY 03/17/21 05/14/21 History Allergies/Adverse Reactions Allergy/AdvReac Type Severity Reaction Status Date / Time No Known Allergies Allergy Verified 03/25/21 13:35 Current Medications: Generic Name Dose Route Start Last Admin Trade Name Freq PRN Reason Stop Dose Admin Sodium Chloride 1,000 mls @ 30 mls/hr 05/14/21 10:15 05/14/21 10:39 Sodium Chloride 0.9% IV 05/15/21 10:14 30 mls/hr .Q24H SIERRA Administration Pertinent History/Comorbid Conditions* Medical History (Updated 03/25/21 @ 14:15 by Nisreen Pineda MD) Anxiety Decreased hearing of left ear Essential hypertension Left otitis externa Left otitis media with effusion Mild acid reflux Mixed hyperlipidemia Otitis externa RLS (restless legs syndrome) Type 2 diabetes mellitus Surgical History (Updated 06/08/20 @ 09:21 by LINDSEY Zamarripa) History of left knee surgery History of rotator cuff surgery Family History (Updated 03/17/21 @ 15:11 by Iggy Glass MD) Diabetes Cancer Denies family history of Clotting disorder Social History Smoking and tobacco status: current every day smoker cigarettes Packs smoked per day: 0.5 Years cigarettes smoked: 40 Alcohol intake: current Alcohol intake frequency: few times a week Lives independently: Yes Household members: spouse Housing: House Marital status: Current occupational status: employed History of recent travel: No Current gender identity: Male Pertinent Exam Findings alert, oriented x 3 and regular rate & rhythm Recommendations Surgery/Procedure today Coding Level of Care Code Acute Manager Reading for Katya Cano
[2021-05-14 12:49] VITALS: BP 161/93; PULSE 73; RESP 12; TEMP 36.2; O2SAT 97
[2021-05-14 13:04] VITALS: BP 167/96; PULSE 68; RESP 16; TEMP 36.6; O2SAT 99
--- NOTE | 2021-05-14 13:31 | ANE.PACU2 ---
Documented by User: Isidra Sanchez CRNA 05/14/21 13:32 Inpatient post-anesthesia follow up: Airway intact: Yes Vital signs: Temperature 97.8 F Pulse Rate 68 Respiratory Rate 16 Blood Pressure 167/96 Pulse Oximetry 99 Oxygen Delivery Me thod Room Air Oxygen Flow Rate 2 Fraction of Inspir ed Oxygen Hydration adequate: Yes Mental status: Baseline
--- NOTE | 2021-05-14 14:40 | ANE.PACU2 ---
Inpatient post-anesthesia follow up: Airway intact: Yes Vital signs: Temperature 97.8 F Pulse Rate 68 Respiratory Rate 16 Blood Pressure 167/96 Pulse Oximetry 99 Oxygen Delivery Me thod Room Air Oxygen Flow Rate 2 Fraction of Inspir ed Oxygen Hydration adequate: Yes Nausea and vomiting: No Pain level: 1 Mental status: Baseline
== END 2021-05-14 13:30 | disposition home or self-care (01) ==
PROVIDERS: PCP Family Medicine; Visit Provider Surgery
PROC: 0DJD8ZZ Inspection of Lower Intestinal Tract, Via Natural or Artificial Opening Endoscopic (ICD-10-PCS; CPT 45378; principal; 2021-05-14 11:30)
DX: K57.92 Diverticulitis of intestine, part unspecified, without perforation or abscess without bleeding (principal); Z79.82 Long term (current) use of aspirin; F41.9 Anxiety disorder, unspecified; E78.2 Mixed hyperlipidemia; E11.9 Type 2 diabetes mellitus without complications; F17.210 Nicotine dependence, cigarettes, uncomplicated; D12.4 Benign neoplasm of descending colon; D12.5 Benign neoplasm of sigmoid colon; J44.9 Chronic obstructive pulmonary disease, unspecified; I10 Essential (primary) hypertension; K21.9 Gastro-esophageal reflux disease without esophagitis; E78.5 Hyperlipidemia, unspecified
CPT/HCPCS: 36416; 45380; 45381; 45385; 82962; 88305; 96360; 96361; J2704; J3490; J7030

== ENCOUNTER → 2021-11-30 09:22 | Outpatient (BNVA) | payer MEDICARE, SELFPAY | PROVIDERS: PCP Family Medicine; Visit Provider Nurse Practitioner Family | DX: E11.65 Type 2 diabetes mellitus with hyperglycemia (principal); E55.9 Vitamin D deficiency, unspecified | CPT/HCPCS: 80053; 80061; 82043; 82306; 82607; 83036; 84443; 85025 ==

== ENCOUNTER → 2022-01-28 17:52 | Outpatient (BNVA) | payer MEDICARE, SELFPAY | PROVIDERS: PCP Family Medicine; Visit Provider Nurse Practitioner Family | DX: E11.65 Type 2 diabetes mellitus with hyperglycemia (principal); N52.9 Male erectile dysfunction, unspecified; I10 Essential (primary) hypertension | CPT/HCPCS: 80053; 80061; 83036; 84403; 85025 ==

== ENCOUNTER → 2022-07-07 12:23 | Outpatient (BNVA) | payer MEDICARE, SELFPAY | PROVIDERS: PCP Family Medicine; Visit Provider Nurse Practitioner Family | DX: K63.5 Polyp of colon (principal); E11.65 Type 2 diabetes mellitus with hyperglycemia; E55.9 Vitamin D deficiency, unspecified; E11.9 Type 2 diabetes mellitus without complications; Z12.5 Encounter for screening for malignant neoplasm of prostate; H92.13 Otorrhea, bilateral; K21.9 Gastro-esophageal reflux disease without esophagitis; I10 Essential (primary) hypertension; M54.9 Dorsalgia, unspecified; J30.9 Allergic rhinitis, unspecified; N52.9 Male erectile dysfunction, unspecified | CPT/HCPCS: 80053; 80061; 82306; 83036; 84443; 85025; G0103 ==

== ENCOUNTER → 2023-03-25 09:25 | Outpatient (BNVA) | payer MEDICARE, SELFPAY | PROVIDERS: PCP Family Medicine; Visit Provider Nurse Practitioner Family | DX: E11.65 Type 2 diabetes mellitus with hyperglycemia (principal); N52.9 Male erectile dysfunction, unspecified; J30.9 Allergic rhinitis, unspecified; I10 Essential (primary) hypertension; K21.9 Gastro-esophageal reflux disease without esophagitis; M54.9 Dorsalgia, unspecified | CPT/HCPCS: 80053; 80061; 82043; 83036; 84443; 85025 ==

== ENCOUNTER → 2023-10-06 12:10 | Outpatient (BNVA) | payer MEDICARE, SELFPAY | PROVIDERS: PCP Family Medicine; Visit Provider Nurse Practitioner Family | DX: E11.65 Type 2 diabetes mellitus with hyperglycemia (principal); E55.9 Vitamin D deficiency, unspecified; K21.9 Gastro-esophageal reflux disease without esophagitis; J30.9 Allergic rhinitis, unspecified; I10 Essential (primary) hypertension; Z12.5 Encounter for screening for malignant neoplasm of prostate | CPT/HCPCS: 80053; 80061; 82306; 82607; 83036; 83735; 84443; 85025; G0103 ==

== ENCOUNTER → 2024-06-20 09:04 | Outpatient (BNVA) | payer MEDICARE, SELFPAY | PROVIDERS: PCP Family Medicine; Visit Provider Nurse Practitioner Family | DX: E11.65 Type 2 diabetes mellitus with hyperglycemia (principal); E55.9 Vitamin D deficiency, unspecified | CPT/HCPCS: 80053; 80061; 82306; 82607; 83036; 84443; 85025 ==

== ENCOUNTER → 2025-02-20 10:23 | Outpatient (BNVA) | payer MEDICARE, MEDICAID, SELFPAY | PROVIDERS: PCP Nurse Practitioner Family; Visit Provider Nurse Practitioner Family | DX: E11.65 Type 2 diabetes mellitus with hyperglycemia (principal); E55.9 Vitamin D deficiency, unspecified; I10 Essential (primary) hypertension; Z12.5 Encounter for screening for malignant neoplasm of prostate; K21.9 Gastro-esophageal reflux disease without esophagitis; E78.2 Mixed hyperlipidemia | CPT/HCPCS: 80053; 80061; 82043; 82306; 82607; 83036; 84443; 85025; G0103 ==

== ENCOUNTER → 2025-06-04 15:00 | Outpatient (BNVA) | payer MEDICARE, MEDICAID, SELFPAY | PROVIDERS: PCP Nurse Practitioner Family; Visit Provider Nurse Practitioner Family | DX: L02.419 Cutaneous abscess of limb, unspecified (principal) | CPT/HCPCS: 87070; 87075; 87205 ==